=== PATIENT | female | born 1935 | race Caucasian/White ===

== ENCOUNTER 2017-07-10 09:20 | Inpatient (IN) ==
[2017-07-10] MEDS ORDERED: 0.9 % Sodium Chloride 1,000 ML IVC ONE ×2 (09:28→12:24)
[2017-07-10] MEDS ORDERED: Ondansetron 4 MG/2 ML VIAL IVP ONE ×2 (09:28→12:24)
[2017-07-10] MEDS ORDERED: *HR* FentaNYL (PF) 100 MCG/2 ML VIAL IVP ONE (09:28)
--- NOTE | 2017-07-10 09:50 | Emergency Department Note ---
Disposition Clinical Impression: NSTEMI (non-ST elevated myocardial infarction), Abdominal pain, Nausea and vomiting Disposition: Admitted As Inpatient Condition: Good Nausea/Vomiting/Diarrhea HPI - General Chief complaint: ED Nausea/Vomiting/Diarrhea Stated complaint: NVD Time Seen by Provider: 07/10/17 09:21 Source: patient, EMS Mode of arrival: EMS Limitations: no limitations Nursing Notes Reviewed: Yes Vital Signs Reviewed: Yes - History of Present Illness HPI Narrative: 81-year-old female presents to the ER with a chief complaint of abdominal pain nausea vomiting and diarrhea. Patient reports that she started having symptoms yesterday evening. She ate Indonesian for dinner and started having symptoms around 4 hours later. She reports pain around her epigastric area that feels dull. She has also had nausea with numerous episodes of vomiting. Reports she had a couple loose bowel movements. She denies any chest pain or shortness of breath. No history of cardiac disease. No history of abdominal surgeries. She denies any fevers, dysuria, hematuria. No sick contacts. No other complaints. Pt Subjective Complaint: nausea, vomiting, diarrhea, abdominal pain Onset (ago): hour(s) Associated Abdominal Pain: Yes If pain, Location of pain: epigastric Severity: mild Severity scale (1-10): 4 Quality: aching Consistency: intermittent Improves with: nothing Worsens with: nonthing Associated symptoms: Reports: nausea/vomiting. Denies: chest pain, fever/chills , shortness of breath - Related Data Home Medications Medication Instructions Recorded Confirmed Aspirin [Lo-Dose Aspirin EC] 81 mg PO DAILY 07/10/17 07/10/17 Cholecalciferol (D-3) [Vitamin D] 1,000 unit PO DAILY 07/10/17 07/10/17 Furosemide [Lasix] 40 mg PO DAILY PRN 07/10/17 07/10/17 Glimepiride [Amaryl] 1 mg PO DAILY 07/10/17 07/10/17 Gluc/Jaxson-MSM#1/C/Joshua/Osvaldo/Bor 1 tab PO DAILY 07/10/17 07/10/17 [Osteo Bi-Flex Caplet] Loratadine [Claritin] 10 mg PO DAILY 07/10/17 07/10/17 [place]-3/Dha/Epa/Fish Oil [Fish Oil 1,000 mg PO DAILY 07/10/17 07/10/17 1,000 mg Softgel] Propranolol HCl [Propranolol HCl] 40 mg PO TID 07/10/17 07/10/17 Rosuvastatin Calcium [Rosuvastatin 10 mg PO DAILY 07/10/17 07/10/17 Calcium] Saxagliptin HCl [Onglyza] 2.5 mg PO DAILY 07/10/17 07/10/17 Triamterene/Hydrochlorothiazid 1 cap PO DAILY 07/10/17 07/10/17 [Dyazide 37.5-25 Capsule] Vit A/Vit C/Vit E/Zinc/Copper 1 cap PO DAILY 07/10/17 07/10/17 [Icaps Areds Softgel] Allergies Allergy/AdvReac Type Severity Reaction Status Date / Time ETTA Inhibitors AdvReac Cough Verified 07/10/17 09:34 All systems ED: reviewed and negative except as stated. Constitutional: Denies: fever Cardiovascular: Denies: chest pain Respiratory: Denies: dyspnea Gastrointestinal: Reports: abdominal pain, nausea, vomiting, diarrhea Genitourinary: Denies: dysuria, hematuria Past Medical History - Past Medical History Attestation: Yes The following information was validated with the patient. Source: patient Medical history: Reports: diabetes, hyperlipidemia, hypertension, renal disease Psychiatric history: Reports: no psych history - Social History Smoking Status: Never smoker Smokeless Tobacco Status: No Alcohol use: Reports: none Drug use: Reports: none Physical Exam - General Limitations: no limitations General appearance: alert, in no apparent distress - Head Head exam: atraumatic, normocephalic - Eye Eye exam: Present: normal appearance - ENT ENT exam: normal exam - Neck Neck exam: Present: normal inspection, full ROM - Chest Chest inspection: Present: normal inspection, symmetric chest wall rise - Respiratory Respiratory exam: Present: normal lung sounds bilaterally - Cardiovascular Cardiovascular exam: Present: regular rate, normal rhythm, normal heart sounds - Abdominal Exam Abdominal exam: Present: soft, tenderness (Patient has mild epigastric tenderness without rigidity guarding or distention.). Absent: distention, guarding, rigidity - Extremities Exam Extremities exam: Present: normal inspection, full ROM - Expanded Upper Extremity Exam Shoulder exam: Present: normal inspection, full ROM Arm exam: Present: normal inspection, full ROM Elbow exam: Present: normal inspection, full ROM Forearm/Wrist exam: Present: normal inspection, full ROM Hand exam: Present: normal inspection, full ROM - Expanded Lower Extremity Exam Hip/Pelvis exam: Present: normal inspection, full ROM Upper leg exam: Present: normal inspection, full ROM Knee exam: Present: normal inspection, full ROM Lower leg exam: Present: normal inspection, full ROM Ankle exam: Present: normal inspection, full ROM Foot/toe exam: Present: normal inspection, full ROM - Skin Skin exam: Present: warm, dry Course Course Narrative: Patient seen and examined. Vital signs reviewed. We will get an EKG, CT of the abdomen and pelvis as well as labs including troponin and urinalysis. Patient given IV fluids, Zofran and fentanyl. - Reevaluation(s) Reevaluation #1: Discussed results of imaging and labs with the patient. Discussed recommendation for repeat 3 hour troponin and meantime we will give her some additional IV fluids, Zofran and Pepcid. Reevaluation #2: Discussed results repeat troponin with the patient. She continues to deny any chest pains is having some epigastric dullness. Repeat EKG without worsening of any findings. We will admit to the hospitalist for further evaluation. Vital Signs Temperature 98.3 F 07/10/17 09:22 Pulse Rate 97 07/10/17 09:22 Respiratory Rate 16 07/10/17 09:22 Blood Pressure 154/94 07/10/17 09:22 O2 Sat by Pulse Oximetry 94 07/10/17 09:22 Temperature 98.3 F 07/10/17 09:22 Pulse Rate 79 07/10/17 13:44 Respiratory Rate 16 07/10/17 15:05 Blood Pressure 132/69 07/10/17 15:05 O2 Sat by Pulse Oximetry 96 07/10/17 13:44 Oxygen Delivery Oxygen Delivery Room Air Nausea/Vomiting/Diarrhea - MDM Narrative Medical decision making narrative: 81-year-old female presents to the ER due to epigastric abdominal pain nausea and vomiting since yesterday evening. Well-appearing here. Initial EKG nonischemic. CT scan without evidence of acute pathology. Labs reviewed. We did repeat a 3 hour troponin which was elevated at 0.08. Patient given low- dose aspirin. She is admitted to the hospitalist service for NSTEMI. - Lab Data Lab results reviewed: Yes I reviewed the patient's lab results. Result diagrams: 07/10/17 09:46 07/10/17 09:46 Lab Results 07/10/17 07/10/17 07/10/17 Range/Units 09:26 09:46 09:46 WBC 11.8 H (4.3-11.1) K/mcL RBC 5.52 H (3.82-4.97) M/mcL Hgb 17.4 H (11.5-15.4) g/dL Hct 50.2 H (35.3-44.9) % MCV 90.9 (83.0-100.0) fL MCH 31.5 (28.0-33.3) pg MCHC 34.7 (31.6-35.5) g/dL RDW 12.7 (11.5-14.5) % Plt Count 138 L (140-400) K/mcL MPV 11.1 (9.4-12.4) fL Immature Gran % 0.4 (0-4) % Seg Neutrophils % 93.4 % Lymphocytes % 1.9 % Monocytes % 3.9 % Eosinophils % 0.3 % Basophils % 0.1 % Neutrophils # 11.0 H (1.6-8.9) K/mcL Lymphocytes # 0.2 L (0.6-4.6) K/mcL Monocytes # 0.5 (0.0-1.3) K/mcL Eosinophils # 0.0 (0.0-0.6) K/mcL Basophils # 0.0 (0.0-0.2) K/mcL Immature Plt Fraction 5.8 (1.1-6.1) % Sodium 138 (136-145) mEq/L Potassium 3.7 (3.5-5.1) mEq/L Chloride 103 (98-107) mEq/L Carbon Dioxide 23 (23-29) mEq/L BUN 34 H (8-23) mg/dL Creatinine 1.38 H (0.60-1.20) mg/dL Est GFR ( Amer) 45 L (> 60) Est GFR (Non-Af Amer) 37 L (> 60) BUN/Creatinine Ratio 25 (6-26) Glucose 335 H (70-105) mg/dL POC Glucose 307 H (58-89) Calculated Osmolality 307 H (280-300) Calcium 9.0 (8.6-10.3) mg/dL Total Bilirubin 1.0 (0.3-1.0) mg/dL AST 23 (13-39) Units/L ALT 47 (7-52) Units/L Alkaline Phosphatase 46 (34-104) Units/L Troponin I (< 0.04) ng/mL Serum Total Protein 7.1 (6.4-8.9) g/dL Albumin 4.3 (3.5-5.7) g/dL Globulin 2.8 (2.4-3.5) g/dL Albumin/Globulin Ratio 1.5 (1.1-2.2) Lipase 33 (11-82) Units/L Urine Color (Yellow) Urine Clarity (Clear) Urine pH (5.0-8.0) pH Units Ur Specific [employer] (1.010-1.025) Urine Protein (Neg-Trace) mg/dL Urine Glucose (UA) (Normal) mg/dL Urine Ketones (Negative) mg/dL Urine Blood (Negative) Urine Nitrite (Negative) Urine Bilirubin (Negative) Urine Urobilinogen (Normal) mg/dL Ur Leukocyte Esterase (Negative) Urine Microscopic RBC (0-3) per hpf Urine Microscopic WBC (0-3) per hpf Ur Squamous Epith Cells (None-Few) per lpf Urine Bacteria (None-Few) per hpf Hyaline Casts (None-Few) per lpf Ur Culture Indicated? (NO) 07/10/17 07/10/17 07/10/17 Range/Units 09:46 10:06 12:59 WBC (4.3-11.1) K/mcL RBC (3.82-4.97) M/mcL Hgb (11.5-15.4) g/dL Hct (35.3-44.9) % MCV (83.0-100.0) fL MCH (28.0-33.3) pg MCHC (31.6-35.5) g/dL RDW (11.5-14.5) % Plt Count (140-400) K/mcL MPV (9.4-12.4) fL Immature Gran % (0-4) % Seg Neutrophils % % Lymphocytes % % Monocytes % % Eosinophils % % Basophils % % Neutrophils # (1.6-8.9) K/mcL Lymphocytes # (0.6-4.6) K/mcL Monocytes # (0.0-1.3) K/mcL Eosinophils # (0.0-0.6) K/mcL Basophils # (0.0-0.2) K/mcL Immature Plt Fraction (1.1-6.1) % Sodium (136-145) mEq/L Potassium (3.5-5.1) mEq/L Chloride (98-107) mEq/L Carbon Dioxide (23-29) mEq/L BUN (8-23) mg/dL Creatinine (0.60-1.20) mg/dL Est GFR ( Amer) (> 60) Est GFR (Non-Af Amer) (> 60) BUN/Creatinine Ratio (6-26) Glucose (70-105) mg/dL POC Glucose (58-89) Calculated Osmolality (280-300) Calcium (8.6-10.3) mg/dL Total Bilirubin (0.3-1.0) mg/dL AST (13-39) Units/L ALT (7-52) Units/L Alkaline Phosphatase (34-104) Units/L Troponin I 0.03 0.08 H* (< 0.04) ng/mL Serum Total Protein (6.4-8.9) g/dL Albumin (3.5-5.7) g/dL Globulin (2.4-3.5) g/dL Albumin/Globulin Ratio (1.1-2.2) Lipase (11-82) Units/L Urine Color Yellow (Yellow) Urine Clarity Clear (Clear) Urine pH 5.5 (5.0-8.0) pH Units Ur Specific [employer] > 1.030 H (1.010-1.025) Urine Protein 100 H (Neg-Trace) mg/dL Urine Glucose (UA) >=1000 H (Normal) mg/dL Urine Ketones 15 H (Negative) mg/dL Urine Blood Negative (Negative) Urine Nitrite Negative (Negative) Urine Bilirubin Small H (Negative) Urine Urobilinogen Normal (Normal) mg/dL Ur Leukocyte Esterase Negative (Negative) Urine Microscopic RBC 3-5 H (0-3) per hpf Urine Microscopic WBC 0-3 (0-3) per hpf Ur Squamous Epith Cells Moderate H (None-Few) per lpf Urine Bacteria None Seen (None-Few) per hpf Hyaline Casts None Seen (None-Few) per lpf Ur Culture Indicated? NO (NO) - Radiology Data Radiology results reviewed: Yes I reviewed the patient's radiology results. Abdomen/Pelvis CT 07/10/17 10:20 IMPRESSION: Fluid is seen within the lumen of the colon. Correlate with any history of diarrhea. Diverticulosis, without alicia diverticulitis. Cholelithiasis. Fatty liver. Bibasilar pulmonary nodules, the largest within the lingula measuring up to approximately 1.6 cm, potentially nodular atelectasis. Short-term interval follow-up to resolution is recommended. D/ / Owen Corona MD / Owen Corona MD Interpreting Provider: Owen Corona MD - EKG Data EKG attestation: Yes I reviewed and interpreted this EKG. EKG results narrative: EKG demonstrates sinus rhythm with a rate of 84 bpm. Left axis deviation. Normal intervals. Normal R-wave progression. Nonspecific ST-T wave changes in the inferior and lateral leads. No gross ST elevations or depressions. No acute ischemic findings. No significant changes from previous EKG dated . EKG demonstrates sinus rhythm with rate of 84 bpm. Left axis deviation. Normal intervals. Normal R-wave progression. No gross ST elevations or depressions. No acute ischemic findings. No significant changes from previous EKG. S.B.A.R. - S.B.A.R. Situation: Demographics, MOA Background: Presenting Complaint, Relevant PMH, Meds, & Allergies Assessment: Course and respsone to treatment, Exam Concerns, Patient/Family Expectation, Pertinant Lab Results Recommendation: Barrier(s) to disposition, Recommendation based on pending studies, treatments, or consults S.B.A.R. Report Given to: Dr. Cummins Attestation Statement - Attestation Attestation: I examined this patient and my medical decision-making was reviewed with the Resident Physician, Dr. Armendariz. I agree with the documented findings, disposition and treatment plan as described except to the extent set forth below. Patient is a 81-year-old white female who presents to the emergency department today with complaints of epigastric discomfort associated with nausea vomiting and loose watery diarrhea since last night. Patient associates this with eating Indonesian food for dinner last night and becoming sick there soon after. Patient denies any fevers or chills, no lower abdominal pain, no blood in her stool, no back or flank pain. I agree with the patient's physical exam findings as documented. Pt had not had any vomiting or diarrhea while in the ED but does complain of ongoing epigastric discomfort and nausea. EKG shows a normal sinus rhythm without acute ischemia. She was given IV meds for nausea and Pepcid for GI discomfort. Labs were unremarkable overall in abdominal and pelvic CT scan was unremarkable for any abnormalities. Patient was tolerating by mouth following medication administration and feeling better although complained of nagging epigastric discomfort. We decided to do serial troponin at 3 hours which she was called as a critical lab and elevated. Repeat EKG was obtained showing some concern for new [address] depression in the lateral leads. Patient received aspirin and will be admitted for concerns for non-STEMI. Patient remains hemodynamically stable at this time and tolerated aspirin without difficulty.
[2017-07-10 09:53] LABS: Basophils % 0.1 %; Eosinophils % 0.3 %; Hematocrit 50.2 % (35.3-44.9); Hemoglobin 17.4 g/dL (11.5-15.4); Immature Granulocytes % 0.4 % (0-4); Immature Platelets 5.8 % (1.1-6.1); Lymphocytes # 0.2 K/mcL (0.6-4.6); Lymphocytes % 1.9 %; Mean Corpuscular HGB Conc 34.7 g/dL (31.6-35.5); Mean Corpuscular Hemoglobin 31.5 pg (28.0-33.3); Mean Corpuscular Volume 90.9 fL (83.0-100.0); Mean Platelet Volume 11.1 fL (9.4-12.4); Monocytes # 0.5 K/mcL (0.0-1.3); Monocytes % 3.9 %; Platelet Count 138 K/mcL (140-400); Red Blood Count 5.52 M/mcL (3.82-4.97); Red Cell Distribution Width 12.7 % (11.5-14.5); Segmented Neutrophils % 93.4 %
[2017-07-10 10:09] LABS: Albumin 4.3 g/dL (3.5-5.7); Albumin/Globulin Ratio 1.5 (1.1-2.2); Globulin 2.8 g/dL (2.4-3.5); Potassium 3.7 mEq/L (3.5-5.1); Total Protein 7.1 g/dL (6.4-8.9)
[2017-07-10 10:21] LABS: Bilirubin,Urine Small (Negative); Blood,Urine Negative (Negative); Clarity,Urine Clear (Clear); Color,Urine Yellow (Yellow); Glucose,Urine (UA) >=1000 mg/dL (Normal); Ketones,Urine 15 mg/dL (Negative); Leukocyte Esterase,Urine Negative (Negative); Nitrite,Urine Negative (Negative); PH,Urine 5.5 pH Units (5.0-8.0); Protein,Urine 100 mg/dL (Neg-Trace); Specific Gravity,Urine > 1.030 (1.010-1.025); Urobilinogen,Urine Normal (Normal)
[2017-07-10 10:24] LABS: Bacteria,Urine None Seen per hpf (None-Few); Hyaline Casts,Urine None Seen per lpf (None-Few); Squamous Epithelial Cell,Urine Moderate per lpf (None-Few); WBC,Urine 0-3 per hpf (0-3)
[2017-07-10] MEDS ORDERED: Famotidine 20 MG/2 ML VIAL IVP ONE (11:30)
[2017-07-10] MEDS ORDERED: Aspirin 81 MG TAB.CHEW PO ONE (13:47)
[2017-07-10] MEDS ORDERED: Acetaminophen 325 MG TABLET PO PRN (14:50)
[2017-07-10] MEDS ORDERED: Dextrose Gel 15 GM/37.5 ML TUBE PO PRN ×2 (14:50)
[2017-07-10] MEDS ORDERED: Naloxone 0.4 MG/ML INJ IVP PRN (14:50)
[2017-07-10] MEDS ORDERED: *HR* OxyCODONE Immed Rel 5 MG TABLET PO PRN (14:50)
[2017-07-10] MEDS ORDERED: *HR* Dextrose 50 % in Water (Syg) 50 ML SYRINGE IVP PRN (14:50)
[2017-07-10] MEDS ORDERED: D5% in Water 1,000 ML IVC PRN (14:50)
[2017-07-10] MEDS ORDERED: traMADol 50 MG TABLET PO PRN (14:50)
[2017-07-10] MEDS ORDERED: Nitroglycerin 0.4 MG TAB.SUBL SL PRN (14:54)
[2017-07-10] MEDS ORDERED: *HR* Enoxaparin 30 MG/0.3 ML SYRINGE SQ SCH (14:55)
--- NOTE | 2017-07-10 15:08 | Internal Med History&Physical ---
Date of Encounter: 07/10/17 Time of Encounter: 14:58 Assessment and Plan (1) Acute gastroenteritis Current visit: Yes Status: Acute Dehydration secondary to acute gastroenteritis, likely infectious Continue IV fluids, pain control, send the GI panel Continue clear liquids Hold triamterene Zofran as needed Omeprazole for GI prophylaxis and Lovenox for DVT prophylaxis. Patient will be admitted for observation. Full code. Time spent on this admission 40 minutes (2) Elevated troponin Current visit: Yes Status: Acute Elevated troponins likely secondary to demand ischemia The patient is not symptomatic Consider starting heparin drip if troponin increases considerably Keep aspirin, follow troponins, telemetry, lipid panel in the morning Echocardiogram to assess wall motion abnormalities Repeat EKG in the morning (3) Diabetes Current visit: Yes Status: Acute Insulin sliding scale Qualifiers: Diabetes mellitus type: type 2 Diabetes mellitus complication status: without complication Diabetes mellitus ocean transportation intermediary insulin use: without ocean transportation intermediary use Qualified Code(s): E11.9 - Type 2 diabetes mellitus without complications (4) Hypertension Current visit: Yes Status: Acute Continue propanolol Qualifiers: Hypertension type: essential hypertension Qualified Code(s): I10 - Essential (primary) hypertension (5) Polycythemia Current visit: Yes Status: Acute Polycythemia secondary to dehydration Continue IV fluids (6) Chronic kidney disease, stage III (moderate) Current visit: Yes Status: Acute Internal Medicine - H&P: HPI Chief complaint: Vomiting Admitted From: Emergency Dept History of present illness: Ms. Castellanos is a 81 year old female with a past medical history of chronic kidney disease stage III, diverticulosis, diabetes type 2 not insulin-dependent , hypertension, hyperlipidemia who came to the emergency room complaining of nausea vomiting and diarrhea started at 3 AM, 4 hours after eating Latvian food. The patient describes that she has been having nonstop vomiting and has thrown up about 7 times. Denies any abdominal cramps but feels very gassy, had a few episodes of diarrhea without seeing any blood. She received a dose of Zofran in the emergency room and also fentanyl. At the moment she feels much better, denies any chest pain. Appears very dehydrated and her hemoglobin is 17.4 and hematocrit is 50. Her discomfort is rated at 4/10. Troponin is 0.08, the prior value was 0.03. EKG shows sinus rhythm with flattening of T waves in the inferior and lateral leads slightly changed from the prior EKG. Denies any chest discomfort. Feels a lot better after receiving 2 L of normal saline in the emergency room. No sick contacts or recent traveling Past Med Surg Social Fam HX - Past Medical History Medical history: diabetes (Not insulin-dependent), hyperlipidemia, hypertension , renal disease (Chronic kidney disease stage III), other (Diverticulosis, cholelithiasis, gout, she is legally blind) Psychiatric history: no psych history - Past Surgical History Surgical History: knee replacement, orthopedic, other (Knee surgery laterally) - Social History Smoking Status: Never smoker Smokeless Tobacco Status: No Alcohol use: none Drug use: none - Additional Family History Additional family history: Mother with history of brain aneurysm/ arteriovenous malformation Internal Medicine - H&P: Meds 3 Allergy/AdvReac Type Severity Reaction Status Date / Time ETTA Inhibitors AdvReac Cough Verified 07/10/17 09:34 All Systems PM: A 10-system review of systems was performed and is negative for pertinent findings except as documented above in the HPI. Review of systems: Denies any chest pain, shortness of breath, no abdominal pain, no dysuria. Other systems out of the 10 reviewed were negative. Feels very weak - Constitutional Vitals: Temp Pulse Resp BP Pulse Ox 98.3 F 79 13 158/89 96 07/10/17 09:22 07/10/17 13:44 07/10/17 13:44 07/10/17 13:44 07/10/17 13:44 General appearance: Present: A&O X 3 Exam: Dry mucosa, appears dehydrated - Head Head exam: Present: atraumatic, normocephalic - Eye Eye exam: Present: PERRL, conjuntiva pink, sclera anicteric Pupils: Present: PERRL - Neck Neck exam general surgery: Present: supple, trachea midline. Absent: lymphadenopathy - Respiratory Respiratory exam: Present: CTAB. Absent: accessory muscle use, rales, rhonchi, wheezes - Cardiovascular Cardiovascular exam: Present: RRR, +S1, +S2. Absent: diastolic murmur, gallop, rubs, systolic murmur - GI/Abdominal GI/Abdominal exam: Present: normal bowel sounds, soft, no peritoneal signs. Absent: distended, tenderness - Extremities Exam Extremities exam: Present: warm, radial pulses palpable and symmetrical. Absent : calf tenderness, cyanotic, pedal edema - Neurological Exam Neurological exam: Present: CN II-XII intact, oriented X3, no focal deficits. Absent: pronater drift, facial droop, speech deficit - Skin Skin exam: Present: dry, intact Internal Med - H&P Results - Labs CBC & Chem 7: 07/10/17 09:46 07/10/17 09:46 Labs: Short CBC 07/10/17 Range/Units 09:46 WBC 11.8 H (4.3-11.1) K/mcL Hgb 17.4 H (11.5-15.4) g/dL Hct 50.2 H (35.3-44.9) % Plt Count 138 L (140-400) K/mcL Neutrophils # 11.0 H (1.6-8.9) K/mcL BMP 07/10/17 09:46 Sodium 138 Potassium 3.7 Chloride 103 Carbon Dioxide 23 BUN 34 H Creatinine 1.38 H Glucose 335 H Calcium 9.0 Cardiac Enzymes 07/10/17 07/10/17 Range/Units 09:46 12:59 Troponin I 0.03 0.08 H* (< 0.04) ng/mL Liver Function 07/10/17 Range/Units 09:46 Total Bilirubin 1.0 (0.3-1.0) mg/dL AST 23 (13-39) Units/L ALT 47 (7-52) Units/L Alkaline Phosphatase 46 (34-104) Units/L Albumin 4.3 (3.5-5.7) g/dL Urine 07/10/17 Range/Units 10:06 Urine Color Yellow (Yellow) Urine Clarity Clear (Clear) Urine pH 5.5 (5.0-8.0) pH Units Ur Specific [place] > 1.030 H (1.010-1.025) Urine Protein 100 H (Neg-Trace) mg/dL Urine Glucose (UA) >=1000 H (Normal) mg/dL - Impressions ITS Impressions Abdomen/Pelvis CT 07/10/17 10:20 IMPRESSION: Fluid is seen within the lumen of the colon. Correlate with any history of diarrhea. Diverticulosis, without alicia diverticulitis. Cholelithiasis. Fatty liver. Bibasilar pulmonary nodules, the largest within the lingula measuring up to approximately 1.6 cm, potentially nodular atelectasis. Short-term interval follow-up to resolution is recommended. D/ / Owen Corona MD / Owen Corona MD Interpreting Provider: Owen Corona MD
[2017-07-10] MEDS ORDERED: Ondansetron 4 MG/2 ML VIAL IVP PRN (15:32)
[2017-07-10] MEDS: 0.9 % Sodium Chloride 1,000 ML IVC SCH (19:35)
[2017-07-10] MEDS: Insulin LISPRO 300 UNITS/3 ML VIAL SQ SCH (19:41)
[2017-07-10] MEDS ORDERED: *HR* Heparin 5,000 UNIT/ML VIAL IVP ONE (19:51)
[2017-07-10] MEDS ORDERED: *HR* Heparin 5,000 UNIT/ML VIAL IVP PRN ×2 (19:51)
--- NOTE | 2017-07-10 19:56 | Event Note ---
Date of Encounter: 07/10/17 Time of Encounter: 19:30 Pt's troponin 0.03-0.08-0.35. Pt denies chest pain but there is some EKG ST-T changes, no ST elevation. Will start heparin drip and consult cardiology.
[2017-07-10] MEDS: Heparin 25,000 UNIT/500 ML D5W 25,000 UNIT/500 ML BAG IVC SCH (20:39)
[2017-07-10 21:08] LABS: Hematocrit 43.1 % (35.3-44.9); Mean Corpuscular HGB Conc 33.6 g/dL (31.6-35.5); Mean Corpuscular Hemoglobin 31.3 pg (28.0-33.3); Mean Corpuscular Volume 93.1 fL (83.0-100.0); Mean Platelet Volume 11.9 fL (9.4-12.4); Red Blood Count 4.63 M/mcL (3.82-4.97); Red Cell Distribution Width 13.1 % (11.5-14.5)
[2017-07-10 21:11] LABS: Hemoglobin 14.5 g/dL (11.5-15.4)
[2017-07-10 21:12] LABS: INR 1.2; Prothrombin Time 13.2 Seconds (9.4-12.1)
[2017-07-11 03:16] LABS: Basophils % 0.3 %; Eosinophils % 0.4 %; Hematocrit 41.3 % (35.3-44.9); Hemoglobin 14.4 g/dL (11.5-15.4); Immature Granulocytes % 0.4 % (0-4); Lymphocytes # 0.8 K/mcL (0.6-4.6); Lymphocytes % 10.9 %; Mean Corpuscular HGB Conc 34.9 g/dL (31.6-35.5); Mean Corpuscular Volume 91.8 fL (83.0-100.0); Mean Platelet Volume 11.4 fL (9.4-12.4); Monocytes # 0.7 K/mcL (0.0-1.3); Monocytes % 9.4 %; Neutrophils # 5.6 K/mcL (1.6-8.9); Platelet Count 122 K/mcL (140-400); Red Cell Distribution Width 13.2 % (11.5-14.5); Segmented Neutrophils % 78.6 %
[2017-07-11 03:33] LABS: Calcium 7.4 mg/dL (8.6-10.3); Chol/HDL Ratio 3.4 (0-4.9); Magnesium 1.4 mg/dL (1.6-2.6); Potassium 3.5 mEq/L (3.5-5.1)
[2017-07-11] MEDS: Insulin LISPRO 300 UNITS/3 ML VIAL SQ SCH ×3 (08:30→16:32)
[2017-07-11] MEDS: 0.9 % Sodium Chloride 1,000 ML IVC SCH (08:30)
[2017-07-11] MEDS ORDERED: Aspirin Enteric Coated 81 MG Tablet PO SCH (09:00)
--- NOTE | 2017-07-11 11:20 | Cardiology Consult Note ---
Date of Encounter: 07/11/17 Time of Encounter: 09:00 Assessment and Plan (1) NSTEMI (non-ST elevated myocardial infarction) Current Visit: Yes Status: Acute Per cardiology: -Presented with nausea and vomiting. -Troponins 0.03, 0.08, 0.35, 0.71, 1.04, 1.21. -Denies chest pain. -No acute ECG changes, -ON asa, statin, beta zheng, and heparin drip. -TTE pending. -Creatinine 1.38, at baseline. -Platelets 122, platelets have been 120-160s previously. -Discussed LHC with patient. Risks versus benefits of LHC explained to patient. Patient states understanding. At this time, patient wishes to review TTE prior to agreeing to LHC. -Further recommendations pending TTE. (2) Acute gastroenteritis Current Visit: Yes Status: Acute Per cardiology: -Admitted with nausea and vomiting after eating cymro food. -Management per primary service. (3) Chronic kidney disease, stage III (moderate) Current Visit: Yes Status: Acute Per cardiology: -KNown CKD. -Creatinine 1.38. -Baseline 1.3-1.5 -Management per primary service. Discussion w patient/family: The assessment and plan as outlined above was discussed with the patient who expressed understanding and agreement. All questions were answered. Thank you for involving us in the care of your patient. Please call with any questions. Discussed and reviewed with . History of Present Illness Consult date: 07/10/17 Requesting physician: Sally Rodríguez Consult reason: elevated troponin Chief complaint: nausea, vomiting History of present illness: Ms. Castellanos is a 81 year old female with a relevant past medical history of CKD, HTN, hyperlipidemia, DM. Patient presented to [facility] with complaints of intractable nausea and vomiting. Patient states she ate cymro food the evening before her vomiting started. Patient states she woke up with "indigestion," and then started with nausea and vomiting. Patient denies fevers , chills. Denies chest pain. Patient deneis icnreased shortness of breath or increased fatigue. Past Med Surg Social Fam HX - Past Medical History Attestation: Yes The following information was validated with the patient. Source: patient, old records reviewed Medical history: arthritis, diabetes, hyperlipidemia, hypertension, renal disease, other Psychiatric history: no psych history - Past Surgical History Surgical History: knee replacement, orthopedic, other - Social History Smoking Status: Never smoker Smokeless Tobacco Status: No Alcohol use: none Drug use: none Medications and Allergies Aspirin [Lo-Dose Aspirin EC] 81 mg PO DAILY 07/10/17 [History] Cholecalciferol (D-3) [Vitamin D] 1,000 unit PO DAILY 07/10/17 [History] Furosemide [Lasix] 40 mg PO DAILY PRN 07/10/17 [History] Glimepiride [Amaryl] 1 mg PO DAILY 07/10/17 [History] Gluc/Jaxson-MSM#1/C/Joshua/Osvaldo/Bor [Osteo Bi-Flex Caplet] 1 tab PO DAILY 07/10/17 [ History] Loratadine [Claritin] 10 mg PO DAILY 07/10/17 [History] Parnell-3/Dha/Epa/Fish Oil [Fish Oil 1,000 mg Softgel] 1,000 mg PO DAILY 07/10/17 [History] Propranolol HCl [Propranolol HCl] 40 mg PO TID 07/10/17 [History] Rosuvastatin Calcium [Rosuvastatin Calcium] 10 mg PO DAILY 07/10/17 [History] Saxagliptin HCl [Onglyza] 2.5 mg PO DAILY 07/10/17 [History] Triamterene/Hydrochlorothiazid [Dyazide 37.5-25 Capsule] 1 cap PO DAILY [History] Vit A/Vit C/Vit E/Zinc/Copper [Icaps Areds Softgel] 1 cap PO DAILY 07/10/17 [ History] 3 Allergy/AdvReac Type Severity Reaction Status Date / Time ETTA Inhibitors AdvReac Cough Verified 07/10/17 09:34 All Systems Review: A 10-system review of systems was performed and is negative for pertinent findings except as documented above in the HPI. - Cardiovascular Cardiovascular: as per HPI - Gastrointestinal Gastrointestinal: nausea, other (Vomiting, indigestion) Physical Examination Vital Signs Temperature 98.3 F 07/10/17 09:22 Pulse Rate 97 07/10/17 09:22 Respiratory Rate 16 07/10/17 09:22 Blood Pressure 154/94 07/10/17 09:22 O2 Sat by Pulse Oximetry 94 07/10/17 09:22 Temperature 98.4 F 07/11/17 03:17 Pulse Rate 58 07/11/17 03:17 Respiratory Rate 16 07/11/17 03:17 Blood Pressure 99/63 07/11/17 03:17 O2 Sat by Pulse Oximetry 96 07/11/17 03:17 Oxygen Delivery Oxygen Delivery Room Air General: Conversant, No Apparent Distress HEENT: Atraumatic, Normocephaly, Mucus Membranes Moist Neck: No JVD, Normal carotid pulses Cardiac: Reg Rate and Rhythm, Normal S1 and S2, No Murmur Lungs: Normal Breath Sounds, No Wheeze, Rales, Rhonchi Neuro: Alert and responsive, No focal deficits noted Abdomen: Soft, Non-Tender Skin: No rashes noted on visualized skin Musculoskeletal: No Chest Wall Tenderness Extremities: No Clubbing, No Cyanosis, No Edema, Normal Pulses Results 07/11/17 02:58 07/11/17 02:58 Lab Results Impressions Abdomen/Pelvis CT 07/10/17 10:20 IMPRESSION: Fluid is seen within the lumen of the colon. Correlate with any history of diarrhea. Diverticulosis, without alicia diverticulitis. Cholelithiasis. Fatty liver. Bibasilar pulmonary nodules, the largest within the lingula measuring up to approximately 1.6 cm, potentially nodular atelectasis. Short-term interval follow-up to resolution is recommended. D/ / Owen Corona MD / Owen Corona MD Interpreting Provider: Owen Corona MD Active Medications Acetaminophen (Tylenol) 650 mg PO Q6HR PRN PRN Reason: Mild Pain/Fever Stop: 01/09/18 14:51 Aspirin (Aspirin Ec) 81 mg PO DAILY DELBERT Stop: 01/10/18 09:01 Last Admin: 07/11/17 08:29 Dose: 81 mg Atorvastatin Calcium (Lipitor) 40 mg PO HS DELBERT Stop: 01/09/18 21:01 Last Admin: 07/10/17 21:22 Dose: 40 mg Calcium Carbonate (Tums) 1,000 mg PO QID PRN; Protocol PRN Reason: Heartburn Stop: 01/09/18 21:01 Last Admin: 07/10/17 19:45 Dose: 1,000 mg Dextrose/Water (Dextrose 50% (Syg)) 25 ml IVP AD PRN PRN Reason: Hypoglycemia Stop: 01/09/18 14:51 Glucagon (Glucagen) 1 mg IM ONCE PRN PRN Reason: Hypoglycemia Stop: 01/09/18 14:51 Glucose (Gluctose) 15 gm PO ONCE PRN PRN Reason: Hypoglycemia Stop: 01/09/18 14:51 Glucose (Gluctose) 30 gm PO ONCE PRN PRN Reason: Hypoglycemia Stop: 01/09/18 14:51 Heparin Sodium (Porcine) (Heparin) 4,000 unit IVP Q6H PRN PRN Reason: SEE COMMENTS Stop: 01/09/18 19:52 Heparin Sodium (Porcine) (Heparin) 2,000 unit IVP Q6H PRN PRN Reason: SEE COMMENTS Stop: 01/09/18 19:52 Dextrose (Dextrose 5%) 1,000 mls @ 100 mls/hr IVC .Q10H PRN PRN Reason: HYPOGLYCEMIA Stop: 01/09/18 14:51 Heparin Sodium/Dextrose (Heparin 25,000 Unit/500 Ml D5w) 25,000 unit in 500 mls @ 20.684 mls/hr IVC .Q24H DELBERT; 12 UNIT/KG/HR PRN Reason: Protocol Stop: 01/09/18 20:01 Last Titration: 07/11/17 09:31 Dose: 10.26 unit/kg/hr, 17.7 mls/hr Insulin Human Lispro (Humalog) 0 units SQ TIDAC DELBERT PRN Reason: Protocol Stop: 01/09/18 16:31 Last Admin: 07/11/17 08:30 Dose: Not Given Naloxone HCl (Narcan) 0.4 mg IVP Q2MIN PRN PRN Reason: SEE COMMENTS Stop: 01/09/18 14:51 Nitroglycerin (Nitroglycerin) 0.4 mg SL Q5MIN PRN PRN Reason: Chest Pain Stop: 01/09/18 14:55 Omeprazole (Prilosec) 40 mg PO DAILY@0630 DELBERT PRN Reason: Protocol Stop: 01/10/18 06:31 Last Admin: 07/11/17 06:52 Dose: 40 mg Ondansetron HCl (Zofran) 4 mg IVP Q6HR PRN; Protocol PRN Reason: Nausea And Vomiting Stop: 01/09/18 15:33 Oxycodone HCl (Roxicodone) 10 mg PO Q6HR PRN PRN Reason: Severe Pain Stop: 01/09/18 14:51 Propranolol HCl (Inderal) 40 mg PO TID DELBERT Stop: 01/09/18 15:01 Last Admin: 07/11/17 08:29 Dose: 40 mg Tramadol HCl (Ultram) 50 mg PO Q6HR PRN PRN Reason: Moderate Pain Stop: 01/09/18 14:51 Laboratory Tests 04/30/14 09/01/16 11/17/16 11:12 10:41 08:39 Hgb Plt Count 127 L 138 L Creatinine 1.45 H Troponin I 06/13/17 06/13/17 07/10/17 10:49 10:50 09:46 Hgb Plt Count 151 138 L Creatinine 1.56 H Troponin I 07/10/17 07/10/17 07/10/17 09:46 12:59 18:55 Hgb Plt Count Creatinine Troponin I 0.03 0.08 H* 0.35 H* 07/10/17 07/11/17 07/11/17 20:48 00:50 02:58 Hgb 14.4 Plt Count 131 L 122 L Creatinine Troponin I 0.71 H* 07/11/17 07/11/17 07/11/17 02:58 06:26 10:41 Hgb Plt Count Creatinine 1.38 H Troponin I 1.04 H* 1.21 H* - Imaging and Cardiology Chest Xray: report reviewed Echo: pending - EKG Interpretation EKG results cardiology: personally reviewed (ECG with SR, HR 74.), other ( Telemetry reviewed with average HR previous 12 hours noted to be 58, sinus bradycardia. PVCs noted.) Consult Discharge Plan - Plan Referrals: Cody Berg MD [Primary Care Provider] -
--- NOTE | 2017-07-11 11:44 | Internal Med Progress Note ---
Date of Encounter: 07/11/17 Time of Encounter: 11:41 - Assessment and plan (1) Elevated troponin Current Visit: Yes Status: Acute Assessment and plan: Possible non-STEMI Continue heparin drip, aspirin, statin, nitroglycerin as needed Continue propanolol Urology was consulted, echocardiogram pending Cardiology to consider cardiac catheterization The patient has developed a viral infection symptoms Check respiratory infection panel Recommendations appreciated (2) Acute gastroenteritis Current Visit: Yes Status: Acute Assessment and plan: dehydration secondary to acute gastroenteritis, likely infectious Continue IV fluids, pain control, send GI panel Continue clear liquids Hold triamterene Zofran as needed Omeprazole for GI prophylaxis (3) Diabetes Current Visit: Yes Status: Acute Assessment and plan: Insulin sliding scale Qualifiers: Diabetes mellitus type: type 2 Diabetes mellitus complication status: without complication Diabetes mellitus long term care social worker insulin use: without fci use Qualified Code(s): E11.9 - Type 2 diabetes mellitus without complications (4) Hypertension Current Visit: Yes Status: Acute Assessment and plan: Propanolol Qualifiers: Hypertension type: essential hypertension Qualified Code(s): I10 - Essential (primary) hypertension (5) Polycythemia Current Visit: Yes Status: Acute Assessment and plan: Secondary to dehydration Resolved (6) Chronic kidney disease, stage III (moderate) Current Visit: Yes Status: Acute Assessment and plan: Continue IV fluids (7) NSTEMI (non-ST elevated myocardial infarction) Current Visit: Yes Status: Acute - Subjective Interval history: Denies any chest pain, shortness of breath, abdominal pain, no diarrhea since admission. The patient has been coughing and having chills - Constitutional Vitals: Temp Pulse Resp BP Pulse Ox 98.4 F 58 16 99/63 96 07/11/17 03:17 07/11/17 03:17 07/11/17 03:17 07/11/17 03:17 07/11/17 03:17 General appearance: Present: A&O X 3 - Head Head exam: Present: atraumatic, normocephalic - Eye Eye exam: Present: PERRL, conjuntiva pink, sclera anicteric Pupils: Present: PERRL - Neck Neck exam general surgery: Present: supple, trachea midline. Absent: lymphadenopathy - Respiratory Respiratory exam: Present: CTAB. Absent: accessory muscle use, rales, rhonchi, wheezes - Cardiovascular Cardiovascular exam: Present: RRR, +S1, +S2. Absent: diastolic murmur, gallop, rubs, systolic murmur - GI/Abdominal GI/Abdominal exam: Present: normal bowel sounds, soft, no peritoneal signs. Absent: distended, tenderness - Extremities Exam Extremities exam: Present: warm, radial pulses palpable and symmetrical. Absent : calf tenderness, cyanotic, pedal edema - Neurological Exam Neurological exam: Present: CN II-XII intact, oriented X3, no focal deficits. Absent: pronater drift, facial droop, speech deficit - Skin Skin exam: Present: dry, intact Internal Medicine: Result - Labs CBC & Chem 7: 07/11/17 02:58 07/11/17 02:58 Labs: Short CBC 07/11/17 Range/Units 02:58 WBC 7.2 (4.3-11.1) K/mcL Hgb 14.4 (11.5-15.4) g/dL Hct 41.3 (35.3-44.9) % Plt Count 122 L (140-400) K/mcL Neutrophils # 5.6 (1.6-8.9) K/mcL BMP 07/11/17 02:58 Sodium 143 Potassium 3.5 Chloride 107 Carbon Dioxide 30 H BUN 27 H Creatinine 1.38 H Glucose 183 H Calcium 7.4 L Cardiac Enzymes 07/11/17 07/11/17 Range/Units 06:26 10:41 Troponin I 1.04 H* 1.21 H* (< 0.04) ng/mL - ABG Interpretation ABG results: PT/INR, D-dimer PT 13.2 Seconds (9.4-12.1) H 07/10/17 20:48 - Impressions Impressions Echocardiogram 07/11/17 14:49 Impressions: LVEF 60-65%. Mild left ventricular diastolic dysfunction. Normal right ventricular structure and function. Mild tricuspid regurgitation. No pulmonary hypertension. Left Ventricular Wall Motion: Rest Echo Findings All wall segments showed normal motion. Findings: Study Quality * Technically adequate exam. ECG Findings * Normal sinus rhythm. Left Ventricle * LVEF 60-65%. * Mild left ventricular diastolic dysfunction. * Normal LV size and wall thickness. Right Ventricle * Normal right ventricular structure and function. Left Atrium * Mildly dilated left atrium. Right Atrium * Right atrium is not well visualized. Aortic Valve * No aortic regurgitation. * Aortic valve not well visualized. * No aortic stenosis. Mitral Valve * Normal mitral valve structure. * No mitral stenosis. * Trace mitral regurgitation. Tricuspid Valve * Tricuspid valve not well visualized. * Mild tricuspid regurgitation. * Estimated RA pressure is 3 mmHg. * Estimated RVSP is 28 mmHg. * No pulmonary hypertension. Pulmonic Valve * Pulmonic valve is not well visualized. * No pulmonic stenosis. * No pulmonic regurgitation. Pulmonary Artery * Pulmonary artery not well visualized. Aorta * Normally sized aortic root. * Ascending aorta not well visualized. Pericardium * There is no pericardial effusion present. Interatrial Septum * No evidence of PFO by color Doppler. IVC * Normal IVC dimensions and inspiratory collapse. Consult Discharge Plan - Plan Referrals: Cody Berg MD [Primary Care Provider] -
[2017-07-11 14:58] LABS: Adenovirus Not Detected (Not Detect); Bordetella Pertussis Not Detected (Not Detect); Chlamydophila pneumoniae Not Detected (Not Detect); Coronavirus 229E Not Detected (Not Detect); Coronavirus HKU1 Not Detected (Not Detect); Coronavirus NL63 Not Detected (Not Detect); Coronavirus OC43 Not Detected (Not Detect); Human Metapneumovirus Not Detected (Not Detect); Human Rhinovirus/Enterovirus Not Detected (Not Detect); Influenza A Subtype 2009 H1 Not Detected (Not Detect); Influenza A Untypeable Not Detected (Not Detect); Influenza B Not Detected (Not Detect); Mycoplasma pneumoniae Not Detected (Not Detect); Parainfluenza Virus 1 Not Detected (Not Detect); Parainfluenza Virus 2 Not Detected (Not Detect); Parainfluenza Virus 3 Not Detected (Not Detect); Parainfluenza Virus 4 Not Detected (Not Detect); Respiratory Syncytial Virus Not Detected (Not Detect)
[2017-07-11] MEDS ORDERED: 0.9 % Sodium Chloride 1,000 ML ONE ×3 (15:33→20:52)
[2017-07-11] MEDS ORDERED: *HR* Heparin 10,000 UNIT/10 ML VIAL ONE ×2 (15:38→20:53)
[2017-07-11] MEDS ORDERED: Nitroglycerin 1,000 MCG/10 ML VIAL IV ONE ×2 (15:38→20:57)
[2017-07-11] MEDS ORDERED: Heparin 1,000 UNITS/500 mL 500 ML ONE ×4 (15:38→20:52)
[2017-07-11] MEDS ORDERED: *HR* FentaNYL (PF) 100 MCG/2 ML VIAL ONE ×3 (15:40→20:52)
[2017-07-11] MEDS ORDERED: *HR* Midazolam HCl 2 MG/2 ML VIAL ONE ×3 (15:40→20:52)
[2017-07-11] MEDS ORDERED: *HR* Atropine Sulfate 1 MG/10 ML SYRINGE ONE (15:48)
[2017-07-11] MEDS ORDERED: Tirofiban 12.5 MG/250ML 12.5 MG/250 ML BAG ONE (15:48)
[2017-07-11] MEDS ORDERED: ISOVUE-370 200 ML INFUS..BTL IV ONE ×2 (15:57→20:53)
[2017-07-11] MEDS ORDERED: Nitroglycerin Spray 4.9 GM BOTTLE ONE (16:30)
--- NOTE | 2017-07-11 17:16 | Electrocardiograph Report ---
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
--- NOTE | 2017-07-11 17:23 | Electrocardiograph Report ---
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
[2017-07-11] MEDS ORDERED: WATER IVC ONE (17:45)
[2017-07-11] MEDS ORDERED: NITROPRUSSIDE IVC ONE (17:45)
[2017-07-11] MEDS ORDERED: D5 IVC ONE (17:45)
[2017-07-11] MEDS ORDERED: *HR* Morphine 2 MG/ML SYRINGE ONE ×3 (17:56→20:13)
[2017-07-11] MEDS ORDERED: Nitroglycerin 25 MG/250 ML INFUS..BTL IVC ONE (19:22)
--- NOTE | 2017-07-11 19:27 | Invasive Diagnostic Lab Proc ---
Name: Savannah Castellanos Date of Study: 07/11/2017 Date: 1935 Ht: 61.0in Medical Record#: [id number] Age: 81 Wt: 189.82lb Gender: Female BSA: 1.85 Order #: [id number] BMI: 35.84 Physicians Procedure Physician: Terrence Esquivel MD Referring MD: Referring MD: Staff Name Position Time In Sites, Venessa RT (R) Monitor 03:35 PM Jimmie Villegas RT (R) Scrub 03:36 PM Vickie Etienne RN Lockstitch Shoulder Joiner 03:36 PM Indications Indication Non-Stemi Procedures Performed Procedure L HRT ARTERY/VENTRICLE ANGIO PRQ CARD PADMAJA STENT W/ANGIO 1 VSL IABP INSERTION, PERCUTANEOUS Pre-Procedure Checklist Informed consent is complete signed and on chart. H&P is on chart. ID band is on and ID verified with patient. Patient NPO for procedure The procedure was described for the patient and questions were answered. Blood Pressure: 100/63 ECG is on chart. Rhythm: NSR Plan of Care Patient will tolerate the procedure without complications. Adequate level of comfort will be maintained. Hemodynamics will remain stable Patient will recover from procedure without complications. Respiratory function will be maintained. Cardiac rhythm will remain stable. Patient temperature will be maintained. Patient and/or family have verbalized understanding of the procedure. Patient Education Chief Complaint/Reason for Test: Cardiac Cath Developmental Category: Geriatric (65+ years) Developmentally Appropriate for Age: Yes Learning Barriers: None Education Needs: Plan of Care Education Method: Verbal Information Taught: Cardiac Cath Educational Evaluation: Able to repeat information Intravenous Access Time IV Size Location DC'd Fluid/Drip Rate Units RN 03:26 PM 20g 1 /" Patent On Arrival Rt Antecubital 0.9NaCl 25 ml/hr Martita Luke RN Allergies Atorvastatin Ibuprofen Acetaminophen IRON Vital Signs Time BP (mmHg) HR (bpm) O2 Sat. RR (bpm) LOC 03:28 PM 99 / 63 58 96 % 16 5 = Fully awake and oriented or at pre-proc level 03:36 PM / % 5 = Fully awake and oriented or at pre-proc level 04:29 PM 189 / 27 58 77 % 24 04:32 PM 143 / 82 63 98 % 18 04:34 PM 148 / 80 54 98 % 18 04:38 PM 134 / 83 56 96 % 14 04:43 PM 136 / 74 53 94 % 24 04:48 PM 88 / 62 61 95 % 6 04:49 PM 127 / 75 51 97 % 18 04:53 PM 137 / 79 52 94 % 19 04:58 PM 147 / 84 51 96 % 23 05:03 PM 142 / 62 51 97 % 18 05:35 PM 135 / 77 48 95 % 11 05:38 PM 145 / 80 49 97 % 12 05:43 PM 105 / 64 60 96 % 15 05:49 PM 120 / 83 49 98 % 19 05:54 PM 140 / 89 49 96 % 23 05:58 PM 119 / 84 50 98 % 13 06:03 PM 131 / 72 60 91 % 15 06:08 PM 141 / 80 56 96 % 16 06:13 PM 128 / 84 55 94 % 9 06:18 PM 142 / 92 60 92 % 18 06:23 PM 95 / 71 62 95 % 22 03:44 PM 170 / 85 56 98 % 17 03:48 PM 135 / 74 55 98 % 17 03:53 PM 143 / 77 55 98 % 14 03:59 PM 138 / 76 56 99 % 22 04:03 PM 147 / 82 59 100 % 12 04:08 PM 139 / 73 59 100 % 17 04:13 PM 150 / 78 58 100 % 21 04:18 PM 160 / 87 59 100 % 13 04:24 PM 138 / 99 59 99 % 29 05:08 PM 141 / 63 51 98 % 13 05:11 PM 136 / 94 50 96 % 22 05:13 PM 103 / 45 49 100 % 20 05:14 PM 85 / 55 50 100 % 21 05:15 PM 126 / 67 50 98 % 24 05:18 PM 130 / 72 51 95 % 16 05:23 PM 132 / 102 50 95 % 10 05:29 PM 94 / 48 59 92 % 12 05:32 PM 131 / 78 48 94 % 15 05:33 PM 72 / 33 49 94 % 12 06:25 PM 89 / 60 58 95 % 21 06:27 PM 123 / 99 61 96 % 10 06:29 PM 147 / 111 55 95 % 35 06:33 PM 76 / 50 62 85 % 26 06:38 PM 63 / 32 60 % 14 06:43 PM 82 / 71 % Procedural Medications Time Medication Dose Units Method Given By 03:36 PM Oxygen 2 L/min nasal cannula Vickie Etienne RN 03:44 PM Versed 1 mg Intravenous Vickie Etienne RN 03:45 PM Fentanyl 50 mcg Intravenous Vickie Etienne RN 03:50 PM Lidocaine 2% 10 ml Subcutaneous Terrence Esquivel MD 04:01 PM Heparin 4000 units Intravenous Vickie Etienne RN 04:01 PM Aggrastat Bolus: 42 ml Intravenous Vickie Etienne RN 04:01 PM Aggrastat 12.5mg/250ml 7.5 ml Intravenous Vickie Etienne RN 04:29 PM Fentanyl 50 mcg Intravenous Vickie Etienne RN 04:30 PM Nitroglycerin 0.4 mcg Orally Vickie Etienne RN 04:31 PM Nitroglycerin 100 mcg Intracoronary MoussKashif lewis MD 04:54 PM Heparin 1000 units Intravenous Vickie Etienne RN 05:09 PM Versed 0.5 mg Intravenous Vickie Etienne RN 05:09 PM Fentanyl 25 mcg Intravenous Vickie Etienne RN 05:23 PM Nitroglycerin 100 mcg Intracoronary MoussKashif lewis MD 05:24 PM Nitroglycerin 200 mcg Intracoronary MoussKashif lewis MD 05:27 PM Nipride 50 mcg Intracoronary MoussaKashif MD 05:27 PM Nipride 50 mcg Intracoronary MoussaKashif MD 05:42 PM Nipride 50 mcg Intracoronary MoussaKashif MD 05:42 PM 0.9NaCl 200 ml/hr Intravenous Vickie Etienne RN 05:50 PM Nipride 100 mcg Intracoronary MoussKashif lewis MD 05:56 PM Morphine 2 mg Intravenous Vickie Etienne RN 05:59 PM Versed 1 mg Intravenous Vickie Etienne RN 06:05 PM Reopro Bolus: 10.8 ml Intracoronary MoussKashif lewis MD 06:07 PM Versed 1 mg Intravenous Vickie Etienne RN 06:30 PM Morphine 1 mg Intravenous Vickie Etienne RN ASA Classification: CLASS II- Mild systemic disease (i.e. well-controlled diabetes, hypertension, asthma, cigarette smoking) Hany Score Preprocedure Postprocedure Activity Activity Circulation Circulation Consciousness Consciousness O2 Saturation O2 Saturation Respiratory Respiratory Total Score Total Score Contrast Agent: Isovue Diagnostic Contrast: 297 ml Total Contrast: 297 ml Fluoro Dose: 6564 mGy Activated Clotting Time Time Seconds to Clot 04:11 PM 160 05:10 PM 322 06:09 PM 400 Procedure Log Time Note Enter By 03:19 PM CathStat 03:35 PM Pt arrived to lab animal technologist 2 at 15:35 scoates 03:35 PM Venessa Wilson RT (R) Position: Monitor Time in: 15:35 scoates 03:36 PM Jimmie Villegas RT (R) Position: Scrub Time in: 15:36 scoates 03:36 PM Vickie Etienne RN Position: Lockstitch Shoulder Joiner Time in: 15:36 scoates 03:36 PM Patient charges- Angio tray pack, Navilyst 3mm J, Pulse Oximetry and ACIST tubing and transducer scoates 03:36 PM Case Delayed No scoates 03:36 PM Physician arrived 15:36 scoates 03:36 PM Meet and greet completed scoates 03:36 PM Sign in performed according to hospital policy. scoates 03:36 PM Procedure start 15:36 scoates 03:36 PM Time: 15:36 Oxygen on at 2 L/min per nasal cannula by Vickie Etienne RN scoates 03:36 PM Time: 15:36 Patient comfortable and pain free: Yes scoates 03:36 PM Time: 15:36LOC: 5 = Fully awake and oriented or at pre-proc level scoates 03:36 PM Clinical Presentation: Non-STEMI scoates 03:42 PM Recorded ECG: HR=57 Condition=Condition 1 03:42 PM Vitals capture started with the following parameters, Patient=Adult, Interval=5 min, Initial Qshssctb=521 mmHg, Deflation Rate=5 mmHg, Cuff placed on Right Arm 03:43 PM Recorded ECG: HR=56 Condition=Condition 1 03:44 PM HR=56 bpm, PPMT=785/85 mmhg, SpO2=98.0 %, Resp=17 B/min 03:45 PM Time: 15:44 Versed 1 mg Intravenous Given by Vickie Etienne RN tsites 03:45 PM Time: 15:45 Fentanyl 50 mcg Intravenous Given by Vickie Etienne RN tsites 03:47 PM Pressure channel 1 zeroed. 03:48 PM HR=55 bpm, NOVV=553/74 mmhg, SpO2=98.0 %, Resp=17 B/min 03:50 PM Time out performed according to hospital policy tsites 03:50 PM Time: 15:50 10 ml Lidocaine 2% to right groin Subcutaneous Given by Terrence Esquivel MD tsites 03:50 PM Micro-Introducer Kit utilized for sheath placement tsites 03:50 PM 3cc of contrast injected into the rt femoral artery tsites 03:52 PM Access obtained by percutaneous puncture. 6Fr 10cm Terumo [place] sheath placed in right Femoral artery. [id number] tsites 03:53 PM HR=55 bpm, KRUF=657/77 mmhg, SpO2=98.0 %, Resp=14 B/min 03:54 PM 5Fr FL 4 catheter inserted over the wire DNC tsites 03:54 PM 0.035 145cm Navilyst 3mmJ wire [id number] tsites 03:55 PM LCA angiography performed in multiple views. tsites 03:55 PM Recorded Pressure: Ao, HR=56, Condition=Condition 1 (Aorta) Ao 115/67/87 03:56 PM wire reinserted catheter removed tsites 03:57 PM 5Fr FR 4 catheter inserted over the wire DNC tsites 03:57 PM ACT drawn tsites 03:59 PM HR=56 bpm, JNKE=167/76 mmhg, SpO2=99.0 %, Resp=22 B/min 03:59 PM RCA angiography performed in multiple views. tsites 03:59 PM Recorded Pressure: LV, HR=62, Condition=Condition 1 (Left Ventricle) LV 134/13/18 04:00 PM Recorded Pressure: LV, Ao, HR=60, Condition=Condition 1 (Left Ventricle) LV 135/14/18, (Aorta) Ao 142/76/102 04:00 PM wire reinserted catheter removed tsites 04:00 PM 5Fr Pigtail catheter inserted over the wire DNC tsites 04:00 PM Catheter selectively placed in left ventricle tsites 04:00 PM edp measured tsites 04:00 PM PCI Status Urgent tsites 04:00 PM PCI Indication: PCI for high risk Non-STEMI or unstable angina tsites 04:01 PM PCI lesion in Mid LAD. tsites 04:01 PM 6Fr XB LAD 3.5 Cordis guide catheter was used to cannulate the PCI vessel successfully. reused? No tsites 04:01 PM Inflation device was opened. tsites 04:01 PM At 16:01 the ACT was 160 seconds. tsites 04:01 PM Time: 16:01 Heparin 4000 units Intravenous Given by Vickie Etienne RN tsites 04:01 PM Time: 16:01 Aggrastat Bolus: 42 ml Intravenous Given by Vickie Etienne RN Love pump tsites 04:02 PM Time: 16:01 Aggrastat 12.5mg/250ml 7.5 ml Intravenous Given by Vickie Etienne RN Love pump tsites 04:02 PM .014 [place]ielder 180cm guide wire across target lesion- successful. reused? No tsites 04:02 PM Coronary Dominance: right tsites 04:03 PM Lesion found in Mid LAD. Pre Stenosis: 99 Pre NASIM Flow: 2: Partial Flow/Perfusion (> 1 but < 3) tsites 04:03 PM HR=59 bpm, ZPWP=691/82 mmhg, OwB3=108.0 %, Resp=12 B/min 04:05 PM Mid/Distal Left Anterior Descending Coronary Artery and diagonal branches with 99% stenosis. If graft is supplying this area, 0 % stenosis tsites 04:08 PM HR=59 bpm, QBRJ=065/73 mmhg, ObX5=499.0 %, Resp=17 B/min, Comment=SB 04:10 PM Recorded Pressure: Ao, HR=61, Condition=Condition 1 (Aorta) Ao 158/72/111 04:10 PM reshaping wire tsites 04:12 PM .014 BMW [place] 190cm guide wire across target lesion- successful. reused? No tsites 04:13 PM HR=58 bpm, ZZXA=484/78 mmhg, EqD0=266.0 %, Resp=21 B/min 04:18 PM HR=59 bpm, NBQZ=393/87 mmhg, AkC6=903.0 %, Resp=13 B/min, Comment=SB 04:24 PM HR=59 bpm, RRAD=387/99 mmhg, SpO2=99.0 %, Resp=29 B/min, Comment=SB 04:24 PM 2.0 mm x 20 mm Emerge Monorail balloon across target lesion- successful. reused? No tsites 04:26 PM Balloon catheter removed intact. tsites 04:26 PM Guide wire removed intact. tsites 04:29 PM HR=58 bpm, FXRI=614/27 mmhg, SpO2=77.0 %, Resp=24 B/min, Comment=SB 04:29 PM Time: 16:29 Fentanyl 50 mcg Intravenous Given by Vickie Etienne RN tsites 04:30 PM NIBP STAT measurement started. 04:31 PM Time: 16:30 Nitroglycerin 0.4 mcg Orally Given by Vickie Etienne RN tsites 04:32 PM Time: 16:31 Nitroglycerin 100 mcg Intracoronary Given by Kashif Esquivel MD tsites 04:32 PM HR=63 bpm, VCJC=267/82 mmhg, SpO2=98.0 %, Resp=18 B/min, Comment=SB 04:33 PM .014 Whisper 300cm guide wire across target lesion- successful. reused? No tsites 04:34 PM HR=54 bpm, DBQU=923/80 mmhg, SpO2=98.0 %, Resp=18 B/min, Comment=SB 04:38 PM HR=56 bpm, FHDI=957/83 mmhg, SpO2=96.0 %, Resp=14 B/min, Comment=SB 04:40 PM Physician reviewing films tsites 04:[address] Hector reviewed films tsites 04:[address] Russ consulted tsites 04:43 PM HR=53 bpm, BMQE=138/74 mmhg, SpO2=94.0 %, Resp=24 B/min, Comment=SB 04:45 PM 1.5 mm x 6 mm Mini Trek OTW balloon across target lesion- successful. reused? No tsites 04:47 PM Recorded ECG: HR=58 Condition=Condition 1 04:48 PM HR=61 bpm, NIBP=88/62 mmhg, SpO2=95.0 %, Resp=6 B/min 04:48 PM NIBP STAT measurement started. 04:49 PM HR=51 bpm, JAFO=495/75 mmhg, SpO2=97.0 %, Resp=18 B/min, Comment=SB 04:51 PM Balloon inflated @ 8 carlos for 10 seconds tsites 04:51 PM Balloon inflated @ 6 carlos for 11 seconds tsites 04:51 PM Balloon inflated @ 6 carlos for 6 seconds tsites 04:52 PM NIBP STAT measurement started. 04:53 PM HR=52 bpm, MUXT=801/79 mmhg, SpO2=94.0 %, Resp=19 B/min 04:54 PM Time: 16:54 Heparin 1000 units Intravenous Given by Vickie Etienne RN tsites 04:55 PM ACT drawn tsites 04:56 PM Balloon catheter removed intact. tsites 04:57 PM 2.0 mm x 12 mm Emerge Monorail balloon across target lesion- successful. reused? No tsites 04:58 PM HR=51 bpm, RCNS=888/84 mmhg, SpO2=96.0 %, Resp=23 B/min 04:58 PM Balloon inflated @ 6 carlos for 6 seconds tsites 04:59 PM Balloon inflated @ 6 carlos for 2 seconds tsites 04:59 PM Balloon inflated @ 10 carlos for 8 seconds tsites 04:59 PM Balloon inflated @ 10 carlos for 4 seconds tsites 04:59 PM Balloon inflated @ 10 carlos for 3 seconds tsites 05:00 PM Balloon inflated @ 10 carlos for 5 seconds tsites 05:00 PM Balloon inflated @ 10 carlos for 5 seconds tsites 05:00 PM Balloon inflated @ 10 carlos for 3 seconds tsites 05:02 PM Balloon catheter removed intact. tsites 05:02 PM 2.0 mm x 20 mm Emerge Monorail balloon across target lesion- successful. reused? No tsites 05:02 PM Balloon inflated @ 10 carlos for 12 seconds tsites 05:02 PM Balloon inflated @ 10 carlos for 7 seconds tsites 05:03 PM Balloon inflated @ 10 carlos for 4 seconds tsites 05:03 PM HR=51 bpm, QSVE=669/62 mmhg, SpO2=97.0 %, Resp=18 B/min 05:03 PM Balloon inflated @ 10 carlos for 5 seconds tsites 05:04 PM Balloon catheter removed intact. tsites 05:07 PM 2.25mm x 20mm Synergy drug-eluting stent across target lesion- successful Lot #[id number] tsites 05:07 PM Stent deployed @ 9 carlos for 5 seconds tsites 05:08 PM Stent balloon reinflated @ 11 carlos for 7 seconds tsites 05:08 PM Stent delivery system removed intact. tsites 05:08 PM HR=51 bpm, BVLZ=951/63 mmhg, SpO2=98.0 %, Resp=13 B/min 05:09 PM 2.5mm x 20mm Synergy drug-eluting stent across target lesion- successful Lot #[id number] tsites 05:09 PM Time: 17:09 Versed 0.5 mg Intravenous Given by Vickie Etienne RN tsites 05:09 PM Time: 17:09 Fentanyl 25 mcg Intravenous Given by Vickie Etienne RN tsites 05:10 PM At 17:10 the ACT was 322 seconds. tsites 05:10 PM Stent deployed @ 9 carlos for 7 seconds tsites 05:11 PM NIBP STAT measurement started. 05:11 PM Stent balloon reinflated @ 11 carlos for 8 seconds tsites 05:11 PM HR=50 bpm, EKBP=611/94 mmhg, SpO2=96.0 %, Resp=22 B/min, Comment=SB 05:11 PM Recorded ECG: HR=50 Condition=Condition 1 05:12 PM Stent delivery system removed intact. tsites 05:13 PM HR=49 bpm, LPFX=632/45 mmhg, WiA4=490.0 %, Resp=20 B/min, Comment=SB 05:13 PM NIBP STAT measurement started. 05:14 PM HR=50 bpm, NIBP=85/55 mmhg, HuT9=240.0 %, Resp=21 B/min, Comment=SB 05:14 PM NIBP STAT measurement started. 05:15 PM HR=50 bpm, ROIC=593/67 mmhg, SpO2=98.0 %, Resp=24 B/min, Comment=SB 05:15 PM 2.0 mm x 20mm NC Trek Rx balloon across target lesion- successful. reused? No tsites 05:15 PM Balloon inflated @ 16 carlos for 4 seconds tsites 05:16 PM Balloon inflated @ 16 carlos for 6 seconds tsites 05:16 PM Balloon inflated @ 6 carlos for 6 seconds tsites 05:17 PM Balloon inflated @ 6 carlos for 8 seconds tsites 05:17 PM Balloon catheter removed intact. tsites 05:18 PM HR=51 bpm, ZOMN=475/72 mmhg, SpO2=95.0 %, Resp=16 B/min, Comment=SB 05:23 PM pronto thrombectomy pass # 1 for 25 ml total fluid. tsites 05:23 PM HR=50 bpm, UGON=594/102 mmhg, SpO2=95.0 %, Resp=10 B/min, Comment=SB 05:23 PM Time: 17:23 Nitroglycerin 100 mcg Intracoronary Given by Kashif Esquivel MD tsites 05:24 PM Time: 17:24 Nitroglycerin 200 mcg Intracoronary Given by Kashif Esquivel MD tsites 05:26 PM Recorded ECG: HR=52 Condition=Condition 1 05:27 PM Time: 17:27 Nipride 50 mcg Intracoronary Given by Kashif Esquivel MD tsites 05:28 PM Time: 17:27 Nipride 50 mcg Intracoronary Given by Kashif Esquivel MD tsites 05:28 PM NIBP STAT measurement started. 05:29 PM HR=59 bpm, NIBP=94/48 mmhg, SpO2=92.0 %, Resp=12 B/min 05:29 PM BMW reinserted tsites 05:31 PM NIBP STAT measurement started. 05:32 PM HR=48 bpm, CJNK=223/78 mmhg, SpO2=94 %, Resp=15 B/min 05:32 PM 2.0 mm x 12 mm Emerge Monorail balloon across target lesion- successful. reused? No tsites 05:33 PM HR=49 bpm, NIBP=72/33 mmhg, SpO2=94 %, Resp=12 B/min 05:33 PM NIBP STAT measurement started. 05:35 PM HR=48 bpm, OYSC=785/77 mmhg, SpO2=95 %, Resp=11 B/min 05:36 PM Balloon catheter removed intact. tsites 05:36 PM 1.5 mm x 20 mm Emerge Monorail push balloon across target lesion- successful. reused? No tsites 05:36 PM Balloon inflated @ 10 carlos for 5 seconds tsites 05:37 PM Balloon inflated @ 10 carlos for 2 seconds tsites 05:37 PM Balloon inflated @ 12 carlos for 10 seconds tsites 05:38 PM HR=49 bpm, GGEH=966/80 mmhg, SpO2=97 %, Resp=12 B/min 05:38 PM Balloon catheter removed intact. tsites 05:39 PM 2.75 mm x 20mm NC Trek Rx balloon across target lesion- successful. reused? No tsites 05:39 PM Balloon inflated @ 16 carlos for 6 seconds tsites 05:40 PM Balloon inflated @ 16 carlos for 6 seconds tsites 05:40 PM Balloon inflated @ 18 carlos for 6 seconds tsites 05:41 PM Balloon inflated @ 16 carlos for 9 seconds tsites 05:41 PM Balloon catheter removed intact. tsites 05:42 PM Time: 17:42 Nipride 50 mcg Intracoronary Given by Kashif Esquivel MD tsites 05:42 PM Time: 17:42 0.9NaCl 200 ml/hr Intravenous Given by Vickie Etienne RN tsites 05:43 PM HR=60 bpm, TCFQ=204/64 mmhg, SpO2=96 %, Resp=15 B/min 05:43 PM 2.0 mm x 8 mm Emerge Monorail balloon across target lesion- successful. reused? No tsites 05:45 PM Balloon catheter removed intact. tsites 05:45 PM Guide wire removed intact. tsites 05:47 PM Balloon inflated @ 10 carlos for 4 seconds tsites 05:48 PM Balloon inflated @ 10 carlos for 3 seconds tsites 05:48 PM Balloon inflated @ 6 carlos for 3 seconds tsites 05:48 PM Balloon inflated @ 10 carlos for 3 seconds tsites 05:49 PM HR=49 bpm, SBRC=440/83 mmhg, SpO2=98 %, Resp=19 B/min 05:50 PM Guide wire removed intact. tsites 05:51 PM Time: 17:50 Nipride 100 mcg Intracoronary Given by Kashif Esquivel MD tsites 05:54 PM HR=49 bpm, LZOW=982/89 mmhg, SpO2=96 %, Resp=23 B/min 05:56 PM Time: 17:56 Morphine 2 mg Intravenous Given by Vickie Etienne RN tsites 05:57 PM bmw wire reinserted tsites 05:58 PM HR=50 bpm, TWXM=295/84 mmhg, SpO2=98 %, Resp=13 B/min 05:59 PM 2.25mm x 12mm Synergy drug-eluting stent across target lesion- successful Lot #[id number] tsites 05:59 PM Balloon inflated @ 10 carlos for 5 seconds tsites 05:59 PM Time: 17:59 Versed 1 mg Intravenous Given by Vickie Etienne RN tsites 06:00 PM Stent balloon reinflated @ 16 carlos for 6 seconds tsites 06:00 PM Stent balloon reinflated @ 16 carlos for 3 seconds tsites 06:01 PM Balloon inflated @ 12 carlos for 4 seconds tsites 06:01 PM Stent balloon reinflated @ 12 carlos for 3 seconds tsites 06:01 PM Balloon inflated @ 12 carlos for 4 seconds tsites 06:02 PM Stent balloon reinflated @ 16 carlos for 3 seconds tsites 06:02 PM Stent delivery system removed intact. tsites 06:03 PM HR=60 bpm, QTMS=530/72 mmhg, SpO2=91.0 %, Resp=15 B/min 06:03 PM 3.0 mm x 15mm NC Emerge balloon across target lesion- successful. reused? No tsites 06:03 PM ACT drawn tsites 06:05 PM Time: 18:05 Reopro Bolus: 10.8 ml Intracoronary Given by Kashif Esquivel MD Love pump tsites 06:06 PM Balloon inflated @ 18 carlos for 6 seconds tsites 06:06 PM Balloon inflated @ 18 carlos for 10 seconds tsites 06:07 PM Balloon inflated @ 20 carlos for 6 seconds tsites 06:07 PM Time: 18:07 Versed 1 mg Intravenous Given by Vickie Etienne RN tsites 06:08 PM Balloon inflated @ 20 carlos for 5 seconds tsites 06:08 PM Balloon inflated @ 20 carlos for 6 seconds tsites 06:08 PM HR=56 bpm, XBXS=717/80 mmhg, SpO2=96 %, Resp=16 B/min 06:09 PM At 18:09 the ACT was 400 seconds. tsites 06:11 PM Balloon catheter removed intact. tsites 06:13 PM Guide catheter removed intact. tsites 06:13 PM 6Fr JR 4 Runway guide catheter was used to cannulate the PCI vessel successfully. reused? No tsites 06:13 PM HR=55 bpm, ENFJ=028/84 mmhg, SpO2=94 %, Resp=9 B/min 06:13 PM RCA angiography performed in multiple views. tsites 06:16 PM Recorded Pressure: LV, HR=60, Condition=Condition 1 (Left Ventricle) LV 132/24/35 06:16 PM Recorded Pressure: LV, HR=61, Condition=Condition 1 (Left Ventricle) LV 141/25/31 06:18 PM HR=60 bpm, UHWE=691/92 mmhg, SpO2=92.0 %, Resp=18 B/min 06:18 PM Sheath exchanged for a 8 Fr 11 cm Maquet Introducer sheath [id number] tsites 06:19 PM 8 Fr Maquet Balloon Pump IABP catheter inserted into right Femoral artery, 40 cc, *ACC* catheter inserted 1 tsites 06:23 PM HR=62 bpm, NIBP=95/71 mmhg, SpO2=95 %, Resp=22 B/min 06:24 PM Recorded ECG: HR=58 Condition=Condition 1 06:24 PM NIBP STAT measurement started. 06:25 PM HR=58 bpm, NIBP=89/60 mmhg, SpO2=95.0 %, Resp=21 B/min 06:25 PM NIBP STAT measurement started. 06:27 PM HR=61 bpm, MBLH=667/99 mmhg, SpO2=96 %, Resp=10 B/min 06:29 PM HR=55 bpm, PVKE=885/111 mmhg, SpO2=95 %, Resp=35 B/min 06:31 PM Time: 18:30 Morphine 1 mg Intravenous Given by Vickie Etienne RN tsites 06:33 PM HR=62 bpm, NIBP=76/50 mmhg, SpO2=85 %, Resp=26 B/min 06:38 PM HR=60 bpm, NIBP=63/32 mmhg, Resp=14 B/min 06:43 PM NIBP=82/71 mmhg 06:45 PM IABP Settings: 1:1 ratio Pressure trigger tsites 06:48 PM IABP Augmented pressure, mean: 121 tsites 06:48 PM IABP Systemic BP: 119/94 tsites 06:48 PM IABP sheath sutured to skin tsites 06:49 PM Procedure completed at 18:49 tsites 06:50 PM Sign out completed: Radiation Dose 6564 mGy Fluoro Time: 68.5 Isovue 370 - 200ml contrast 297 ml given by Terrence Esquivel MD. Complications: NoneCardiac Rehab Consult needed: YesConfirmed administered medications: Yes tsites 06:50 PM Vitals capture stopped. 06:50 PM Isovue 370 - 200ml,3 Bottle(s) used. tsites 06:50 PM Sheath left in place to be pulled on floor/holding areaV+Pad tsites 06:50 PM Estimated Blood Loss: less than 20cc tsites 06:50 PM Post ECG Sinus Bradycardia tsites 06:50 PM Post Blood Pressure 126/69 tsites 06:50 PM 18:50 Post Pulses Bilateral DP & PT 1+ tsites 06:51 PM Information taught Cardiac Cath and PCI tsites 06:51 PM Education needs Procedure, Plan of Care, and Responsibilities of Patient in Care tsites 07:07 PM Learning barriers :None tsites 07:07 PM Education Methods Verbal tsites 07:07 PM Education evaluation Able to repeat information tsites 07:07 PM Site status No bleeding/hematoma - Rt Groin as reported by Jimmie Villegas RT (R) at 19:07 tsites 07:07 PM Opsite applied tsites 07:07 PM Report given to roel RN Pt taken to ICU Room #11. 19:07 tsites 07:07 PM director of labor and delivery staff with patient in icu tsites 07:07 PM Delay to floor No tsites 07:08 PM Patient out of room: 19:08 tsites 07:08 PM Family placed in consult room. tsites 07:08 PM Complications: Dissection tsites 07:09 PM called for stat echo tsites 07:16 PM Lesion found in 1st Diagonal. Pre Stenosis: 95 Pre NASIM Flow: 2: Partial Flow/Perfusion (> 1 but < 3) tsites Complications Complication None Dissection Hemodynamics Pressures Site Systolic/A Wave Diastolic/V Wave Mean AO 115 67 87 LV 134 13 18 LV 135 14 18 AO 142 76 102 AO 158 72 111 LV 132 24 35 LV 141 25 31 Post Procedure Information Blood Pressure: 126/69 mmHg Rhythm: Sinus Bradycardia Post procedural instructions were given Closure Device Time Device Success/Fail 07/11/2017 7:10:00 PM Manual Compression Site Checks Time Location Status Staff Sheath In? Note 07:07 PM Rt Groin No bleeding/hematoma Jimmie Villegas RT (R) Pulses Time Site Pre-Procedure Post-Procedure Note Bilateral radial 2+ 6:50:00 PM Bilateral DP & PT 1+ Updated by Venessa Wilson RT (R) on 07/11/2017 7:22:33 PM RT Vanessa electronically signed on 07/11/2017 7:23:08 PM with status of Final
[2017-07-11] MEDS ORDERED: Tirofiban 12.5 MG/250ML 12.5 MG/250 ML BAG IVC SCH (20:00)
[2017-07-11] MEDS: Heparin 25,000 UNIT/500 ML D5W 25,000 UNIT/500 ML BAG IVC SCH (20:13)
[2017-07-11] MEDS ORDERED: *HR* LORazepam 2 MG/ML VIAL IVP ONE (20:23)
[2017-07-11 21:15] VITALS: BP 127/55
[2017-07-11] MEDS ORDERED: *HR* Adenosine 6 MG/2 ML VIAL IVP ONE (21:41)
--- NOTE | 2017-07-11 22:40 | Invasive Diagnostic Lab Proc ---
Name: Savannah Castellanos Date of Study: 07/11/2017 Date: 1935 Ht: 61.0in Medical Record#: [id number] Age: 81 Wt: 189.60lb Gender: Female BSA: 1.85 Order #: [id number] BMI: 35.8 Physicians Procedure Physician: Terrence Esquivel MD Referring MD: Referring MD: Staff Name Position Time In Jimmie Villegas RT (R) Scrub 09:20 PM Vickie Etienne RN Stripper Soft Plastic 09:20 PM Martita Luke RN Monitor 09:20 PM Indications Indication Non-Stemi Procedures Performed Procedure PRQ CARD PADMAJA STENT W/ANGIO 1 VSL Pre-Procedure Checklist Informed consent is complete signed and on chart. H&P is on chart. ID band is on and ID verified with patient. Patient NPO for procedure The procedure was described for the patient and questions were answered. Blood Pressure: 145/94 ECG is on chart. Rhythm: ST elevation Plan of Care Patient will tolerate the procedure without complications. Adequate level of comfort will be maintained. Hemodynamics will remain stable Patient will recover from procedure without complications. Respiratory function will be maintained. Cardiac rhythm will remain stable. Patient temperature will be maintained. Patient and/or family have verbalized understanding of the procedure. Patient Education Chief Complaint/Reason for Test: Cardiac Cath Developmental Category: Geriatric (65+ years) Learning Barriers: None Education Needs: Plan of Care Education Method: Verbal Information Taught: Cardiac Cath Educational Evaluation: Able to repeat information Intravenous Access Time IV Size Location DC'd Fluid/Drip Rate Units RN 20g 1 /" Patent On Arrival 0.9NaCl 25 ml/hr Vickie Etienne RN Allergies Atorvastatin Ibuprofen Acetaminophen IRON Vital Signs Time BP (mmHg) HR (bpm) O2 Sat. RR (bpm) LOC 09:21 PM / % 4 = Oriented but drowsy 09:21 PM / % 4 = Oriented but drowsy 09:37 PM / % 4 = Oriented but drowsy 09:18 PM 143 / 75 57 94 % 14 09:23 PM 149 / 79 60 96 % 19 09:28 PM 163 / 78 58 97 % 18 09:33 PM 144 / 95 56 98 % 20 09:38 PM 136 / 97 59 98 % 21 09:45 PM 134 / 79 56 98 % 17 09:48 PM 145 / 73 63 97 % 17 09:53 PM 149 / 90 60 97 % 14 09:58 PM 145 / 93 59 98 % 20 10:03 PM 78 / 60 59 91 % 15 10:07 PM / % 4 = Oriented but drowsy Procedural Medications Time Medication Dose Units Method Given By 09:21 PM Oxygen 3 L/min nasal cannula Vickie Etienne RN 09:23 PM Lidocaine 2% 10 ml Subcutaneous Terrence Esquivel MD 09:16 PM Aggrastat 7.5 ml/hr Intravenous 09:44 PM Adenosine 60 mg Intracoronary Kashif Esquivel MD 09:44 PM Adenosine 60 mg Intracoronary Kashif Esquivel MD ASA Classification: CLASS II- Mild systemic disease (i.e. well-controlled diabetes, hypertension, asthma, cigarette smoking) Emergent Procedure: ASA score is assumed Hany Score Preprocedure Postprocedure Activity 2- Moves 4 extremities sustained head lift Activity Circulation 2- SBP +/= 20 points of pre-anesthetic level Circulation Consciousness 2- Awake and alert oriented x 3 Consciousness O2 Saturation 2- Able to maintain O2 satruation of 92% on room air O2 Saturation Respiratory 2- Able to deep breathe and cough well Respiratory Total Score 10 Total Score Contrast Agent: Isovue Diagnostic Contrast: 60 ml Total Contrast: 60 ml Fluoro Dose: 711 mGy Procedure Log Time Note Enter By 09:14 PM Pt arrived to optical lab technician 2 at 21:14 tsites 09:15 PM Physician arrived 21:15 tsites 09:15 PM Meet and greet completed tsites 09:15 PM Sign in performed according to hospital policy. tsites 09:16 PM Procedure start 21:16 tsites 09:16 PM Patient arrived at 21:16 with Aggrastat Intravenous drip @ 15.5 ml/hr tsites 09:17 PM Vitals capture started with the following parameters, Patient=Adult, Interval=5 min, Initial Xkzzgjkj=289 mmHg, Deflation Rate=5 mmHg, Cuff placed on Right Arm 09:18 PM CathStat 09:18 PM Patient is currently not having any chest pain at this time tsites 09:18 PM HR=57 bpm, GQRN=447/75 mmhg, SpO2=94.0 %, Resp=14 B/min 09:19 PM Recorded ECG: HR=70 Condition=Condition 1 09:20 PM Case Delayed No, inpatient tsites 09:20 PM Jimmie Villegas RT (R) Position: Scrub Time in: 21:20 tsites 09:20 PM Vickie Etienne RN Position: Stripper Soft Plastic Time in: :20 tsites 09:20 PM Martita Luke RN Position: Monitor Time in: 21:20 tsites 09:20 PM Hair removed from procedure site in procedure lab using clippers. Left groin prepped with Chloraprep by Venessa Wilson RT (R), safety strap applied then patient was draped. Skin intact. tsites 09: PM Time: 21: Oxygen on at 3 L/min per nasal cannula by Vickie Etienne RN tsites 09: PM Pressure channel 1 zeroed. 09:21 PM Recorded ECG: HR=62 Condition=Condition 1 09: PM Time: 21:21 Patient comfortable and pain free: Yes tsites 09: PM Time: 21:21LOC: 4 = Oriented but drowsy tsites 09:22 PM Clinical Presentation: Unstable angina tsites 09:23 PM Time: :23 10 ml Lidocaine 2% to left groin Subcutaneous Given by Terrence Esquivel MD tsites 09:23 PM HR=60 bpm, KWWI=782/79 mmhg, SpO2=96.0 %, Resp=19 B/min, Comment=st elevation 09:27 PM ASA Class CLASS II- Mild systemic disease (i.e. well-controlled diabetes, hypertension, asthma, cigarette smoking) tsites 09:28 PM Micro-Introducer Kit utilized for sheath placement tsites 09:28 PM Access obtained by percutaneous puncture. 6Fr 11cm Cordis Saadia sheath placed in left Femoral artery. [id number] tsites 09:28 PM HR=58 bpm, OEOL=812/78 mmhg, SpO2=97.0 %, Resp=18 B/min, Comment=st elevation 09:30 PM 6Fr XB LAD 3.5 [place] Bright-Tip guide catheter was used to cannulate the PCI vessel successfully. reused? No tsites 09:30 PM .014 [employer] [place] 190cm guide wire across target lesion- successful. reused? No tsites 09:30 PM Recorded Pressure: Ao, HR=58, Condition=Condition 1 (Aorta) Ao 152/84/124 09:31 PM Lesion found in Mid LAD. Pre Stenosis: 100 Pre NASIM Flow: 0: No Flow/No perfusion tsites 09:33 PM Inflation device was opened. tsites 09:33 PM HR=56 bpm, RLFP=722/95 mmhg, SpO2=98.0 %, Resp=20 B/min 09:34 PM 2.25mm x 16mm Synergy drug-eluting stent across target lesion- successful Lot #[id number] tsites 09:34 PM Stent deployed @ 9 carlos for 8 seconds tsites 09:35 PM Stent balloon reinflated @ 10 carlos for 7 seconds tsites 09:35 PM Stent balloon reinflated @ 10 carlos for 6 seconds tsites 09:35 PM Stent delivery system removed intact. tsites 09:36 PM Time: 21:21 Patient comfortable and pain free: Yes tsites 09:37 PM Time: 21:21LOC: 4 = Oriented but drowsy tsites 09:37 PM 2.25mm x 24mm Synergy drug-eluting stent across target lesion- successful Lot #[id number] tsites 09:37 PM Stent deployed @ 16 carlos for 10 seconds tsites 09:38 PM Stent balloon reinflated @ 16 carlos for 6 seconds tsites 09:38 PM Stent balloon reinflated @ 16 carlos for 4 seconds tsites 09:38 PM HR=59 bpm, YUBV=151/97 mmhg, SpO2=98 %, Resp=21 B/min 09:38 PM Stent balloon reinflated @ 16 carlos for 5 seconds tsites 09:39 PM Stent balloon reinflated @ 4 carlos for 10 seconds tsites 09:39 PM Stent delivery system removed intact. tsites 09:44 PM Time: 21:44 Adenosine 60 mg Intracoronary Given by Kashif Esquivel MD tsites 09:45 PM Time: 21:44 Adenosine 60 mg Intracoronary Given by Kashif Esquivel MD tsites 09:45 PM HR=56 bpm, NBEV=176/79 mmhg, SpO2=98 %, Resp=17 B/min 09:46 PM Wire removed tsites 09:48 PM wire reinserted catheter removed tsites 09:48 PM HR=63 bpm, OZSL=042/73 mmhg, SpO2=97 %, Resp=17 B/min 09:50 PM Bolus angiogram of left Femoral complete: 4 ml/sec for a total of 7 mls tsites 09:50 PM Procedure completed at 21:50 tsites 09:51 PM Did you address NASIM flow and Dominance? Yes tsites 09:51 PM Coronary Dominance: right tsites 09:51 PM Sign out completed: Radiation Dose 711 mGy Fluoro Time: 7.6 Isovue 370 - 200ml contrast 60 ml given by Terrence Esquivel MD. Complications: NoneCardiac Rehab Consult needed: YesConfirmed administered medications: Yes tsites 09:51 PM Isovue 370 - 200ml,1 Bottle(s) used. tsites 09:52 PM Arterial sheath pulled, Angio-seal closure device used and was Successful [id number] S/N. tsites 09:52 PM Time: 21:36 Patient comfortable and pain free: Yes tsites 09:52 PM Time: 21:37LOC: 4 = Oriented but drowsy tsites 09:52 PM Estimated Blood Loss: minimal tsites 09:[address] elevation tsites 09:53 PM Post Blood Pressure 145/73 tsites 09:53 PM HR=60 bpm, XWBR=990/90 mmhg, SpO2=97 %, Resp=14 B/min 09:58 PM HR=59 bpm, BJOR=511/93 mmhg, SpO2=98 %, Resp=20 B/min 10:00 PM 22:00 Post Pulses Bilateral DP & PT 1+ tsites 10:00 PM Information taught Cardiac Cath and PCI tsites 10:00 PM Education needs Procedure, Plan of Care, and Responsibilities of Patient in Care tsites 10:01 PM Learning barriers :None tsites 10:01 PM Education evaluation Able to repeat information tsites 10:01 PM Site status No bleeding/hematoma - Lt Groin as reported by Jimmie Villegas RT (R) at 22:01 tsites 10:01 PM Opsite applied tsites 10:01 PM Report given to [place] [facility] nurse RN Pt taken to [facility] Room #. 22:01 tsites 10:01 PM Plavix, Effient or Brilinta given No, given earlier tsites 10:01 PM Delay to floor No tsites 10:02 PM Family placed in consult room. tsites 10:03 PM Pt to be transfered to [place] at this time tsites 10:03 PM HR=59 bpm, NIBP=78/60 mmhg, SpO2=91.0 %, Resp=15 B/min, Comment=st elevation 10:07 PM Time: 21:52 Patient comfortable and pain free: Yes tsites 10:11 PM med flight here now getting patient ready for transport tsites 10:12 PM report also given to med flight nurses tsites 10:18 PM hematoma noted to left groin. Jimmie and Venessa Marques holding pressure at this time tsites 10:26 PM Time: 22:07LOC: 4 = Oriented but drowsy tsites 10:26 PM Time: 22:07 Patient comfortable and pain free: Yes tsites 10:26 PM notified. Fem stop ordered tsites 10:27 PM Manual pressure applied for 5 minutes, Fem stop applied tsites 10:32 PM patient out of room at this time, pt is hemodynamically stable at this time tsites 10:32 PM tsites Complications Complication None Hemodynamics Pressures Site Systolic/A Wave Diastolic/V Wave Mean AO 152 84 124 Post Procedure Information Blood Pressure: 145/73 mmHg Rhythm: St elevation Post procedural instructions were given Closure Device Time Device Success/Fail 07/11/2017 10:00:00 PM Angio-seal Evolution Successful Site Checks Time Location Status Staff Sheath In? Note 10:01 PM Lt Groin No bleeding/hematoma Jimmie Villegas RT (R) Pulses Time Site Pre-Procedure Post-Procedure Note Bilateral DP & PT 1+ 10:00:00 PM Bilateral DP & PT 1+ Updated by Venessa Wilson RT (R) on 07/11/2017 10:33:06 PM Venessa Wilson RT electronically signed on 07/11/2017 10:34:29 PM with status of Final
[2017-07-12] MEDS ORDERED: Aspirin 81 MG TAB.CHEW PO SCH (09:00)
--- NOTE | 2017-07-12 20:56 | Electrocardiograph Report ---
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
--- NOTE | 2017-07-13 13:15 | Invasive Diagnostic Lab Proc ---
Name: Savannah Castellanos Date of Study: 07/11/2017 Date: 1935 Ht: 61.0in Medical Record#: [id number] Age: 81 Wt: 189.60lb Gender: Female BSA: 1.85 Order #: [id number] BMI: 35.8 Physicians Procedure Physician: Terrence Esquivel MD Referring MD: Referring MD: Staff Name Position Time In Jimmie Villegas RT (R) Scrub 09:20 PM Vickie Etienne RN Auto Body Repair Teacher 09:20 PM Martita Luke RN Monitor 09:20 PM Indications Indication Non-Stemi Procedures Performed Procedure PRQ CARD PADMAJA STENT W/ANGIO 1 VSL Pre-Procedure Checklist Informed consent is complete signed and on chart. H&P is on chart. ID band is on and ID verified with patient. Patient NPO for procedure The procedure was described for the patient and questions were answered. Blood Pressure: 145/94 ECG is on chart. Rhythm: ST elevation Plan of Care Patient will tolerate the procedure without complications. Adequate level of comfort will be maintained. Hemodynamics will remain stable Patient will recover from procedure without complications. Respiratory function will be maintained. Cardiac rhythm will remain stable. Patient temperature will be maintained. Patient and/or family have verbalized understanding of the procedure. Patient Education Chief Complaint/Reason for Test: Cardiac Cath Developmental Category: Geriatric (65+ years) Learning Barriers: None Education Needs: Plan of Care Education Method: Verbal Information Taught: Cardiac Cath Educational Evaluation: Able to repeat information Intravenous Access Time IV Size Location DC'd Fluid/Drip Rate Units RN 20g 1 /" Patent On Arrival 0.9NaCl 25 ml/hr Vickie Etienne RN Allergies Atorvastatin Ibuprofen Acetaminophen IRON Vital Signs Time BP (mmHg) HR (bpm) O2 Sat. RR (bpm) LOC 09:21 PM / % 4 = Oriented but drowsy 09:21 PM / % 4 = Oriented but drowsy 09:37 PM / % 4 = Oriented but drowsy 09:18 PM 143 / 75 57 94 % 14 09:23 PM 149 / 79 60 96 % 19 09:28 PM 163 / 78 58 97 % 18 09:33 PM 144 / 95 56 98 % 20 09:38 PM 136 / 97 59 98 % 21 09:45 PM 134 / 79 56 98 % 17 09:48 PM 145 / 73 63 97 % 17 09:53 PM 149 / 90 60 97 % 14 09:58 PM 145 / 93 59 98 % 20 10:03 PM 78 / 60 59 91 % 15 10:07 PM / % 4 = Oriented but drowsy Procedural Medications Time Medication Dose Units Method Given By 09:21 PM Oxygen 3 L/min nasal cannula Vickie Etienne RN 09:23 PM Lidocaine 2% 10 ml Subcutaneous Terrence Esquivel MD 09:16 PM Aggrastat 7.5 ml/hr Intravenous 09:44 PM Adenosine 60 mg Intracoronary Kashif Esquivel MD 09:44 PM Adenosine 60 mg Intracoronary Kashif Esquivel MD ASA Classification: CLASS II- Mild systemic disease (i.e. well-controlled diabetes, hypertension, asthma, cigarette smoking) Emergent Procedure: ASA score is assumed Hany Score Preprocedure Postprocedure Activity 2- Moves 4 extremities sustained head lift Activity Circulation 2- SBP +/= 20 points of pre-anesthetic level Circulation Consciousness 2- Awake and alert oriented x 3 Consciousness O2 Saturation 2- Able to maintain O2 satruation of 92% on room air O2 Saturation Respiratory 2- Able to deep breathe and cough well Respiratory Total Score 10 Total Score Contrast Agent: Isovue Diagnostic Contrast: 60 ml Total Contrast: 60 ml Fluoro Dose: 711 mGy Procedure Log Time Note Enter By 09:14 PM Pt arrived to slab puller 2 at 21:14 tsites 09:15 PM Physician arrived 21:15 tsites 09:15 PM Meet and greet completed tsites 09:15 PM Sign in performed according to hospital policy. tsites 09:16 PM Procedure start 21:16 tsites 09:16 PM Patient arrived at 21:16 with Aggrastat Intravenous drip @ 15.5 ml/hr tsites 09:17 PM Vitals capture started with the following parameters, Patient=Adult, Interval=5 min, Initial Ezccfyes=280 mmHg, Deflation Rate=5 mmHg, Cuff placed on Right Arm 09:18 PM CathStat 09:18 PM Patient is currently not having any chest pain at this time tsites 09:18 PM HR=57 bpm, YRNQ=235/75 mmhg, SpO2=94.0 %, Resp=14 B/min 09:19 PM Recorded ECG: HR=70 Condition=Condition 1 09:20 PM Case Delayed No, inpatient tsites 09:20 PM Jimmie Villegas RT (R) Position: Scrub Time in: 21:20 tsites 09:20 PM Vickie Etienne RN Position: Auto Body Repair Teacher Time in: :20 tsites 09:20 PM Martita Luke RN Position: Monitor Time in: 21:20 tsites 09:20 PM Hair removed from procedure site in procedure lab using clippers. Left groin prepped with Chloraprep by Venessa Wilson RT (R), safety strap applied then patient was draped. Skin intact. tsites 09: PM Time: 21: Oxygen on at 3 L/min per nasal cannula by Vickie Etienne RN tsites 09: PM Pressure channel 1 zeroed. 09:21 PM Recorded ECG: HR=62 Condition=Condition 1 09: PM Time: 21:21 Patient comfortable and pain free: Yes tsites 09: PM Time: 21:21LOC: 4 = Oriented but drowsy tsites 09:22 PM Clinical Presentation: Unstable angina tsites 09:23 PM Time: :23 10 ml Lidocaine 2% to left groin Subcutaneous Given by Terrence Esquivel MD tsites 09:23 PM HR=60 bpm, NLOD=807/79 mmhg, SpO2=96.0 %, Resp=19 B/min, Comment=st elevation 09:27 PM ASA Class CLASS II- Mild systemic disease (i.e. well-controlled diabetes, hypertension, asthma, cigarette smoking) tsites 09:28 PM Micro-Introducer Kit utilized for sheath placement tsites 09:28 PM Access obtained by percutaneous puncture. 6Fr 11cm Cordis Saadia sheath placed in left Femoral artery. [id number] tsites 09:28 PM HR=58 bpm, BZKK=556/78 mmhg, SpO2=97.0 %, Resp=18 B/min, Comment=st elevation 09:30 PM 6Fr XB LAD 3.5 [place] Bright-Tip guide catheter was used to cannulate the PCI vessel successfully. reused? No tsites 09:30 PM .014 [employer] [place] 190cm guide wire across target lesion- successful. reused? No tsites 09:30 PM Recorded Pressure: Ao, HR=58, Condition=Condition 1 (Aorta) Ao 152/84/124 09:31 PM Lesion found in Mid LAD. Pre Stenosis: 100 Pre NASIM Flow: 0: No Flow/No perfusion tsites 09:33 PM Inflation device was opened. tsites 09:33 PM HR=56 bpm, JAAP=543/95 mmhg, SpO2=98.0 %, Resp=20 B/min 09:34 PM 2.25mm x 16mm Synergy drug-eluting stent across target lesion- successful Lot #[id number] tsites 09:34 PM Stent deployed @ 9 carlos for 8 seconds tsites 09:35 PM Stent balloon reinflated @ 10 carlos for 7 seconds tsites 09:35 PM Stent balloon reinflated @ 10 carlos for 6 seconds tsites 09:35 PM Stent delivery system removed intact. tsites 09:36 PM Time: 21:21 Patient comfortable and pain free: Yes tsites 09:37 PM Time: 21:21LOC: 4 = Oriented but drowsy tsites 09:37 PM 2.25mm x 24mm Synergy drug-eluting stent across target lesion- successful Lot #[id number] tsites 09:37 PM Stent deployed @ 16 carlos for 10 seconds tsites 09:38 PM Stent balloon reinflated @ 16 carlos for 6 seconds tsites 09:38 PM Stent balloon reinflated @ 16 carlos for 4 seconds tsites 09:38 PM HR=59 bpm, NWYJ=813/97 mmhg, SpO2=98 %, Resp=21 B/min 09:38 PM Stent balloon reinflated @ 16 carlos for 5 seconds tsites 09:39 PM Stent balloon reinflated @ 4 carlos for 10 seconds tsites 09:39 PM Stent delivery system removed intact. tsites 09:44 PM Time: 21:44 Adenosine 60 mg Intracoronary Given by Kashif Esquivel MD tsites 09:45 PM Time: 21:44 Adenosine 60 mg Intracoronary Given by Kashif Esquivel MD tsites 09:45 PM HR=56 bpm, SHAG=233/79 mmhg, SpO2=98 %, Resp=17 B/min 09:46 PM Wire removed tsites 09:48 PM wire reinserted catheter removed tsites 09:48 PM HR=63 bpm, IMUK=856/73 mmhg, SpO2=97 %, Resp=17 B/min 09:50 PM Bolus angiogram of left Femoral complete: 4 ml/sec for a total of 7 mls tsites 09:50 PM Procedure completed at 21:50 tsites 09:51 PM Did you address NASIM flow and Dominance? Yes tsites 09:51 PM Coronary Dominance: right tsites 09:51 PM Sign out completed: Radiation Dose 711 mGy Fluoro Time: 7.6 Isovue 370 - 200ml contrast 60 ml given by Terrence Esquivel MD. Complications: NoneCardiac Rehab Consult needed: YesConfirmed administered medications: Yes tsites 09:51 PM Isovue 370 - 200ml,1 Bottle(s) used. tsites 09:52 PM Arterial sheath pulled, Angio-seal closure device used and was Successful [id number] S/N. tsites 09:52 PM Time: 21:36 Patient comfortable and pain free: Yes tsites 09:52 PM Time: 21:37LOC: 4 = Oriented but drowsy tsites 09:52 PM Estimated Blood Loss: minimal tsites 09:[address] elevation tsites 09:53 PM Post Blood Pressure 145/73 tsites 09:53 PM HR=60 bpm, ZRSX=000/90 mmhg, SpO2=97 %, Resp=14 B/min 09:58 PM HR=59 bpm, DTOR=363/93 mmhg, SpO2=98 %, Resp=20 B/min 10:00 PM 22:00 Post Pulses Bilateral DP & PT 1+ tsites 10:00 PM Information taught Cardiac Cath and PCI tsites 10:00 PM Education needs Procedure, Plan of Care, and Responsibilities of Patient in Care tsites 10:01 PM Learning barriers :None tsites 10:01 PM Education evaluation Able to repeat information tsites 10:01 PM Site status No bleeding/hematoma - Lt Groin as reported by Jimmie Villegas RT (R) at 22:01 tsites 10:01 PM Opsite applied tsites 10:01 PM Report given to [facility] nurse RN at [facility]. 22:01 tsites 10:01 PM Plavix, Effient or Brilinta given No, given earlier tsites 10:01 PM Delay to floor No tsites 10:02 PM Family placed in consult room. tsites 10:03 PM Pt to be transfered to [facility] at this time tsites 10:03 PM HR=59 bpm, NIBP=78/60 mmhg, SpO2=91.0 %, Resp=15 B/min, Comment=st elevation 10:07 PM Time: 21:52 Patient comfortable and pain free: Yes tsites 10:11 PM med flight here now getting patient ready for transport tsites 10:12 PM report also given to med flight nurses tsites 10:18 PM hematoma noted to left groin. Jimmie and Venessa Marques holding pressure at this time tsites 10:26 PM Time: 22:07LOC: 4 = Oriented but drowsy tsites 10:26 PM Time: 22:07 Patient comfortable and pain free: Yes tsites 10:26 PM notified. Fem stop ordered tsites 10:27 PM Manual pressure applied for 5 minutes, Fem stop applied tsites 10:32 PM patient out of room at this time, pt is hemodynamically stable at this time tsites 10:32 PM patient transferred to [facility] per [facility] crew tsites Complications Complication None Hemodynamics Pressures Site Systolic/A Wave Diastolic/V Wave Mean AO 152 84 124 Post Procedure Information Blood Pressure: 145/73 mmHg Rhythm: St elevation Post procedural instructions were given Closure Device Time Device Success/Fail 07/11/2017 10:00:00 PM Angio-seal Evolution Successful Site Checks Time Location Status Staff Sheath In? Note 10:01 PM Lt Groin No bleeding/hematoma Jimmie Villegas RT (R) Pulses Time Site Pre-Procedure Post-Procedure Note Bilateral DP & PT 1+ 10:00:00 PM Bilateral DP & PT 1+ Updated by Venessa Wilson RT (R) on 07/13/2017 1:10:09 PM Venessa Wilson RT electronically signed on 07/13/2017 1:11:16 PM with status of Final
--- NOTE | 2017-07-13 13:32 | Invasive Diagnostic Lab Proc ---
Name: Savannah Castellanos Date of Study: 07/11/2017 Date: 1935 Ht: 61.0in Medical Record#: [id number] Age: 81 Wt: 189.82lb Gender: Female BSA: 1.85 Order #: [id number] BMI: 35.84 Physicians Procedure Physician: Terrence Esquivel MD Referring MD: Referring MD: Staff Name Position Time In Sites, Venessa RT (R) Monitor 03:35 PM Jimmie Villegas RT (R) Scrub 03:36 PM Vickie Etienne RN Cad Designer 03:36 PM Indications Indication Non-Stemi Procedures Performed Procedure L HRT ARTERY/VENTRICLE ANGIO PRQ CARD PADMAJA STENT W/ANGIO 1 VSL IABP INSERTION, PERCUTANEOUS Pre-Procedure Checklist Informed consent is complete signed and on chart. H&P is on chart. ID band is on and ID verified with patient. Patient NPO for procedure The procedure was described for the patient and questions were answered. Blood Pressure: 100/63 ECG is on chart. Rhythm: NSR Plan of Care Patient will tolerate the procedure without complications. Adequate level of comfort will be maintained. Hemodynamics will remain stable Patient will recover from procedure without complications. Respiratory function will be maintained. Cardiac rhythm will remain stable. Patient temperature will be maintained. Patient and/or family have verbalized understanding of the procedure. Patient Education Chief Complaint/Reason for Test: Cardiac Cath Developmental Category: Geriatric (65+ years) Developmentally Appropriate for Age: Yes Learning Barriers: None Education Needs: Plan of Care Education Method: Verbal Information Taught: Cardiac Cath Educational Evaluation: Able to repeat information Intravenous Access Time IV Size Location DC'd Fluid/Drip Rate Units RN 03:26 PM 20g 1 /" Patent On Arrival Rt Antecubital 0.9NaCl 25 ml/hr Jyotsna Luke RN Allergies Atorvastatin Ibuprofen Acetaminophen IRON Vital Signs Time BP (mmHg) HR (bpm) O2 Sat. RR (bpm) LOC 03:28 PM 99 / 63 58 96 % 16 5 = Fully awake and oriented or at pre-proc level 03:36 PM / % 5 = Fully awake and oriented or at pre-proc level 04:29 PM 189 / 27 58 77 % 24 04:32 PM 143 / 82 63 98 % 18 04:34 PM 148 / 80 54 98 % 18 04:38 PM 134 / 83 56 96 % 14 04:43 PM 136 / 74 53 94 % 24 04:48 PM 88 / 62 61 95 % 6 04:49 PM 127 / 75 51 97 % 18 04:53 PM 137 / 79 52 94 % 19 04:58 PM 147 / 84 51 96 % 23 05:03 PM 142 / 62 51 97 % 18 05:35 PM 135 / 77 48 95 % 11 05:38 PM 145 / 80 49 97 % 12 05:43 PM 105 / 64 60 96 % 15 05:49 PM 120 / 83 49 98 % 19 05:54 PM 140 / 89 49 96 % 23 05:58 PM 119 / 84 50 98 % 13 06:03 PM 131 / 72 60 91 % 15 06:08 PM 141 / 80 56 96 % 16 06:13 PM 128 / 84 55 94 % 9 06:18 PM 142 / 92 60 92 % 18 06:23 PM 95 / 71 62 95 % 22 03:44 PM 170 / 85 56 98 % 17 03:48 PM 135 / 74 55 98 % 17 03:53 PM 143 / 77 55 98 % 14 03:59 PM 138 / 76 56 99 % 22 04:03 PM 147 / 82 59 100 % 12 04:08 PM 139 / 73 59 100 % 17 04:13 PM 150 / 78 58 100 % 21 04:18 PM 160 / 87 59 100 % 13 04:24 PM 138 / 99 59 99 % 29 05:08 PM 141 / 63 51 98 % 13 05:11 PM 136 / 94 50 96 % 22 05:13 PM 103 / 45 49 100 % 20 05:14 PM 85 / 55 50 100 % 21 05:15 PM 126 / 67 50 98 % 24 05:18 PM 130 / 72 51 95 % 16 05:23 PM 132 / 102 50 95 % 10 05:29 PM 94 / 48 59 92 % 12 05:32 PM 131 / 78 48 94 % 15 05:33 PM 72 / 33 49 94 % 12 06:25 PM 89 / 60 58 95 % 21 06:27 PM 123 / 99 61 96 % 10 06:29 PM 147 / 111 55 95 % 35 06:33 PM 76 / 50 62 85 % 26 06:38 PM 63 / 32 60 % 14 06:43 PM 82 / 71 % Procedural Medications Time Medication Dose Units Method Given By 03:36 PM Oxygen 2 L/min nasal cannula Vickie Etienne RN 03:44 PM Versed 1 mg Intravenous Vickie Etienne RN 03:45 PM Fentanyl 50 mcg Intravenous Vickie Etienne RN 03:50 PM Lidocaine 2% 10 ml Subcutaneous Terrence Esquivel MD 04:01 PM Heparin 4000 units Intravenous Vickie Etienne RN 04:01 PM Aggrastat Bolus: 42 ml Intravenous Vickie Etienne RN 04:01 PM Aggrastat 12.5mg/250ml 7.5 ml Intravenous Vickie Etienne RN 04:29 PM Fentanyl 50 mcg Intravenous Vickie Etienne RN 04:30 PM Nitroglycerin 0.4 mcg Orally Vickie Etienne RN 04:31 PM Nitroglycerin 100 mcg Intracoronary MoussaKashif MD 04:54 PM Heparin 1000 units Intravenous Vickie Etienne RN 05:09 PM Versed 0.5 mg Intravenous AnamariammVickie ashley RN 05:09 PM Fentanyl 25 mcg Intravenous Vickie Etienne RN 05:23 PM Nitroglycerin 100 mcg Intracoronary MoussaKashif MD 05:24 PM Nitroglycerin 200 mcg Intracoronary MoussaKashif MD 05:27 PM Nipride 50 mcg Intracoronary MoussaKashif MD 05:27 PM Nipride 50 mcg Intracoronary MoussaKashif MD 05:42 PM Nipride 50 mcg Intracoronary MoussaKashif MD 05:42 PM 0.9NaCl 200 ml/hr Intravenous Vickie Etienne RN 05:50 PM Nipride 100 mcg Intracoronary MoussaKashif MD 05:56 PM Morphine 2 mg Intravenous Vickie Etienne RN 05:59 PM Versed 1 mg Intravenous Vickie Etienne RN 06:05 PM Reopro Bolus: 10.8 ml Intracoronary MoussKashif lewis MD 06:07 PM Versed 1 mg Intravenous Vickie Etienne RN 06:30 PM Morphine 1 mg Intravenous Vickie Etienne RN 01:17 PM Plavix 300 mg Orally Jyotsna Luke RN 01:18 PM Morphine 1 mg Intravenous Jyotsna Luke RN ASA Classification: CLASS II- Mild systemic disease (i.e. well-controlled diabetes, hypertension, asthma, cigarette smoking) Hany Score Preprocedure Postprocedure Activity Activity Circulation Circulation Consciousness Consciousness O2 Saturation O2 Saturation Respiratory Respiratory Total Score Total Score Contrast Agent: Isovue Diagnostic Contrast: 297 ml Total Contrast: 297 ml Fluoro Dose: 6564 mGy Activated Clotting Time Time Seconds to Clot 04:11 PM 160 05:10 PM 322 06:09 PM 400 Procedure Log Time Note Enter By 03:19 PM CathStat 03:35 PM Pt arrived to label folder 2 at 15:35 scoates 03:35 PM Venessa Wilson RT (R) Position: Monitor Time in: 15:35 scoates 03:36 PM Jimmie Villegas RT (R) Position: Scrub Time in: 15:36 scoates 03:36 PM Vickie Etienne RN Position: Cad Designer Time in: 15:36 scoates 03:36 PM Patient charges- Angio tray pack, Navilyst 3mm J, Pulse Oximetry and ACIST tubing and transducer scoates 03:36 PM Case Delayed No scoates 03:36 PM Physician arrived 15:36 scoates 03:36 PM Meet and greet completed scoates 03:36 PM Sign in performed according to hospital policy. scoates 03:36 PM Procedure start 15:36 scoates 03:36 PM Time: 15:36 Oxygen on at 2 L/min per nasal cannula by Vickie Etienne RN scoates 03:36 PM Time: 15:36 Patient comfortable and pain free: Yes scoates 03:36 PM Time: 15:36LOC: 5 = Fully awake and oriented or at pre-proc level scoates 03:36 PM Clinical Presentation: Non-STEMI scoates 03:42 PM Recorded ECG: HR=57 Condition=Condition 1 03:42 PM Vitals capture started with the following parameters, Patient=Adult, Interval=5 min, Initial Tzcbnefw=946 mmHg, Deflation Rate=5 mmHg, Cuff placed on Right Arm 03:43 PM Recorded ECG: HR=56 Condition=Condition 1 03:44 PM HR=56 bpm, HDWZ=162/85 mmhg, SpO2=98.0 %, Resp=17 B/min 03:45 PM Time: 15:44 Versed 1 mg Intravenous Given by Vickie Etienne RN tsites 03:45 PM Time: 15:45 Fentanyl 50 mcg Intravenous Given by Vickie Etienne RN tsites 03:47 PM Pressure channel 1 zeroed. 03:48 PM HR=55 bpm, JBII=148/74 mmhg, SpO2=98.0 %, Resp=17 B/min 03:50 PM Time out performed according to hospital policy tsites 03:50 PM Time: 15:50 10 ml Lidocaine 2% to right groin Subcutaneous Given by Terrence Esquivel MD tsites 03:50 PM Micro-Introducer Kit utilized for sheath placement tsites 03:50 PM 3cc of contrast injected into the rt femoral artery tsites 03:52 PM Access obtained by percutaneous puncture. 6Fr 10cm Terumo [place] sheath placed in right Femoral artery. [id number] tsites 03:53 PM HR=55 bpm, MAVJ=081/77 mmhg, SpO2=98.0 %, Resp=14 B/min 03:54 PM 5Fr FL 4 catheter inserted over the wire DN tsites 03:54 PM 0.035 145cm Navilyst 3mmJ wire [id number] tsites 03:55 PM LCA angiography performed in multiple views. tsites 03:55 PM Recorded Pressure: Ao, HR=56, Condition=Condition 1 (Aorta) Ao 115/67/87 03:56 PM wire reinserted catheter removed tsites 03:57 PM 5Fr FR 4 catheter inserted over the wire DN tsites 03:57 PM ACT drawn tsites 03:59 PM HR=56 bpm, BPJB=689/76 mmhg, SpO2=99.0 %, Resp=22 B/min 03:59 PM RCA angiography performed in multiple views. tsites 03:59 PM Recorded Pressure: LV, HR=62, Condition=Condition 1 (Left Ventricle) LV 134/13/18 04:00 PM Recorded Pressure: LV, Ao, HR=60, Condition=Condition 1 (Left Ventricle) LV 135/14/18, (Aorta) Ao 142/76/102 04:00 PM wire reinserted catheter removed tsites 04:00 PM 5Fr Pigtail catheter inserted over the wire DN tsites 04:00 PM Catheter selectively placed in left ventricle tsites 04:00 PM edp measured tsites 04:00 PM PCI Status Urgent tsites 04:00 PM PCI Indication: PCI for high risk Non-STEMI or unstable angina tsites 04:01 PM PCI lesion in Mid LAD. tsites 04:01 PM 6Fr XB LAD 3.5 Cordis guide catheter was used to cannulate the PCI vessel successfully. reused? No tsites 04:01 PM Inflation device was opened. tsites 04:01 PM At 16:01 the ACT was 160 seconds. tsites 04:01 PM Time: 16:01 Heparin 4000 units Intravenous Given by Vickie Etienne RN tsites 04:01 PM Time: 16:01 Aggrastat Bolus: 42 ml Intravenous Given by Vickie Etienne RN Love pump tsites 04:02 PM Time: 16:01 Aggrastat 12.5mg/250ml 7.5 ml Intravenous Given by Vickie Etienne RN Love pump tsites 04:02 PM .014 Fielder 180cm guide wire across target lesion- successful. reused? No tsites 04:02 PM Coronary Dominance: right tsites 04:03 PM Lesion found in Mid LAD. Pre Stenosis: 99 Pre NASIM Flow: 2: Partial Flow/Perfusion (> 1 but < 3) tsites 04:03 PM HR=59 bpm, RSCV=823/82 mmhg, FwP1=381.0 %, Resp=12 B/min 04:05 PM Mid/Distal Left Anterior Descending Coronary Artery and diagonal branches with 99% stenosis. If graft is supplying this area, 0 % stenosis tsites 04:08 PM HR=59 bpm, XMYV=839/73 mmhg, KkW0=031.0 %, Resp=17 B/min, Comment=SB 04:10 PM Recorded Pressure: Ao, HR=61, Condition=Condition 1 (Aorta) Ao 158/72/111 04:10 PM reshaping wire tsites 04:12 PM .014 BMW [place] 190cm guide wire across target lesion- successful. reused? No tsites 04:13 PM HR=58 bpm, UNAC=457/78 mmhg, MjC1=731.0 %, Resp=21 B/min 04:18 PM HR=59 bpm, DSUT=837/87 mmhg, MkM2=507.0 %, Resp=13 B/min, Comment=SB 04:24 PM HR=59 bpm, HIZG=342/99 mmhg, SpO2=99.0 %, Resp=29 B/min, Comment=SB 04:24 PM 2.0 mm x 20 mm Emerge Monorail balloon across target lesion- successful. reused? No tsites 04:26 PM Balloon catheter removed intact. tsites 04:26 PM Guide wire removed intact. tsites 04:29 PM HR=58 bpm, OQSA=374/27 mmhg, SpO2=77.0 %, Resp=24 B/min, Comment=SB 04:29 PM Time: 16:29 Fentanyl 50 mcg Intravenous Given by Vickie Etienne RN tsites 04:30 PM NIBP STAT measurement started. 04:31 PM Time: 16:30 Nitroglycerin 0.4 mcg Orally Given by Vickie Etienne RN tsites 04:32 PM Time: 16:31 Nitroglycerin 100 mcg Intracoronary Given by Kashif Esquivel MD tsites 04:32 PM HR=63 bpm, HESP=647/82 mmhg, SpO2=98.0 %, Resp=18 B/min, Comment=SB 04:33 PM .014 Whisper 300cm guide wire across target lesion- successful. reused? No tsites 04:34 PM HR=54 bpm, ZKCI=591/80 mmhg, SpO2=98.0 %, Resp=18 B/min, Comment=SB 04:38 PM HR=56 bpm, TXYO=661/83 mmhg, SpO2=96.0 %, Resp=14 B/min, Comment=SB 04:40 PM Physician reviewing films tsites 04:[address] Hector reviewed films remotely tsites 04:[address] Russ consulted and present in the sawyer cork slabs tsites 04:43 PM HR=53 bpm, UAII=013/74 mmhg, SpO2=94.0 %, Resp=24 B/min, Comment=SB 04:45 PM 1.5 mm x 6 mm Mini Trek OTW balloon across target lesion- successful. reused? No tsites 04:47 PM Recorded ECG: HR=58 Condition=Condition 1 04:48 PM HR=61 bpm, NIBP=88/62 mmhg, SpO2=95.0 %, Resp=6 B/min 04:48 PM NIBP STAT measurement started. 04:49 PM HR=51 bpm, WIQU=543/75 mmhg, SpO2=97.0 %, Resp=18 B/min, Comment=SB 04:51 PM Balloon inflated @ 8 carlos for 10 seconds tsites 04:51 PM Balloon inflated @ 6 carlos for 11 seconds tsites 04:51 PM Balloon inflated @ 6 carlos for 6 seconds tsites 04:52 PM NIBP STAT measurement started. 04:53 PM HR=52 bpm, HKDF=254/79 mmhg, SpO2=94.0 %, Resp=19 B/min 04:54 PM Time: 16:54 Heparin 1000 units Intravenous Given by Vickie Etienne RN tsites 04:55 PM ACT drawn tsites 04:56 PM Balloon catheter removed intact. tsites 04:57 PM 2.0 mm x 12 mm Emerge Monorail balloon across target lesion- successful. reused? No tsites 04:58 PM HR=51 bpm, KFSK=447/84 mmhg, SpO2=96.0 %, Resp=23 B/min 04:58 PM Balloon inflated @ 6 carlos for 6 seconds tsites 04:59 PM Balloon inflated @ 6 carlos for 2 seconds tsites 04:59 PM Balloon inflated @ 10 carlos for 8 seconds tsites 04:59 PM Balloon inflated @ 10 carlos for 4 seconds tsites 04:59 PM Balloon inflated @ 10 carlos for 3 seconds tsites 05:00 PM Balloon inflated @ 10 carlos for 5 seconds tsites 05:00 PM Balloon inflated @ 10 carlos for 5 seconds tsites 05:00 PM Balloon inflated @ 10 carlos for 3 seconds tsites 05:02 PM Balloon catheter removed intact. tsites 05:02 PM 2.0 mm x 20 mm Emerge Monorail balloon across target lesion- successful. reused? No tsites 05:02 PM Balloon inflated @ 10 carlos for 12 seconds tsites 05:02 PM Balloon inflated @ 10 carlos for 7 seconds tsites 05:03 PM Balloon inflated @ 10 carlos for 4 seconds tsites 05:03 PM HR=51 bpm, RFMK=166/62 mmhg, SpO2=97.0 %, Resp=18 B/min 05:03 PM Balloon inflated @ 10 carlos for 5 seconds tsites 05:04 PM Balloon catheter removed intact. tsites 05:07 PM 2.25mm x 20mm Synergy drug-eluting stent across target lesion- successful Lot #[id number] tsites 05:07 PM Stent deployed @ 9 carlos for 5 seconds tsites 05:08 PM Stent balloon reinflated @ 11 carlos for 7 seconds tsites 05:08 PM Stent delivery system removed intact. tsites 05:08 PM HR=51 bpm, OCDV=851/63 mmhg, SpO2=98.0 %, Resp=13 B/min 05:09 PM 2.5mm x 20mm Synergy drug-eluting stent across target lesion- successful Lot #[id number] tsites 05:09 PM Time: 17:09 Versed 0.5 mg Intravenous Given by Vickie Etienne RN tsites 05:09 PM Time: 17:09 Fentanyl 25 mcg Intravenous Given by Vickie Etienne RN tsites 05:10 PM At 17:10 the ACT was 322 seconds. tsites 05:10 PM Stent deployed @ 9 carlos for 7 seconds tsites 05:11 PM NIBP STAT measurement started. 05:11 PM Stent balloon reinflated @ 11 carlos for 8 seconds tsites 05:11 PM HR=50 bpm, OOCZ=834/94 mmhg, SpO2=96.0 %, Resp=22 B/min, Comment=SB 05:11 PM Recorded ECG: HR=50 Condition=Condition 1 05:12 PM Stent delivery system removed intact. tsites 05:13 PM HR=49 bpm, VNJA=688/45 mmhg, EbD3=074.0 %, Resp=20 B/min, Comment=SB 05:13 PM NIBP STAT measurement started. 05:14 PM HR=50 bpm, NIBP=85/55 mmhg, SkG9=722.0 %, Resp=21 B/min, Comment=SB 05:14 PM NIBP STAT measurement started. 05:15 PM HR=50 bpm, IXTG=112/67 mmhg, SpO2=98.0 %, Resp=24 B/min, Comment=SB 05:15 PM 2.0 mm x 20mm NC Trek Rx balloon across target lesion- successful. reused? No tsites 05:15 PM Balloon inflated @ 16 carlos for 4 seconds tsites 05:16 PM Balloon inflated @ 16 carlos for 6 seconds tsites 05:16 PM Balloon inflated @ 6 carlos for 6 seconds tsites 05:17 PM Balloon inflated @ 6 carlos for 8 seconds tsites 05:17 PM Balloon catheter removed intact. tsites 05:18 PM HR=51 bpm, WYVD=541/72 mmhg, SpO2=95.0 %, Resp=16 B/min, Comment=SB 05:23 PM pronto thrombectomy pass # 1 for 25 ml total fluid. tsites 05:23 PM HR=50 bpm, BRKC=563/102 mmhg, SpO2=95.0 %, Resp=10 B/min, Comment=SB 05:23 PM Time: 17:23 Nitroglycerin 100 mcg Intracoronary Given by Kashif Esquivel MD tsites 05:24 PM Time: 17:24 Nitroglycerin 200 mcg Intracoronary Given by Kashif Esquivel MD tsites 05:26 PM Recorded ECG: HR=52 Condition=Condition 1 05:27 PM Time: 17:27 Nipride 50 mcg Intracoronary Given by Kashif Esquivel MD tsites 05:28 PM Time: 17:27 Nipride 50 mcg Intracoronary Given by Kashif Esquivel MD tsites 05:28 PM NIBP STAT measurement started. 05:29 PM HR=59 bpm, NIBP=94/48 mmhg, SpO2=92.0 %, Resp=12 B/min 05:29 PM BMW reinserted tsites 05:31 PM NIBP STAT measurement started. 05:32 PM HR=48 bpm, RILM=437/78 mmhg, SpO2=94 %, Resp=15 B/min 05:32 PM 2.0 mm x 12 mm Emerge Monorail balloon across target lesion- successful. reused? No tsites 05:33 PM HR=49 bpm, NIBP=72/33 mmhg, SpO2=94 %, Resp=12 B/min 05:33 PM NIBP STAT measurement started. 05:35 PM HR=48 bpm, ISMJ=983/77 mmhg, SpO2=95 %, Resp=11 B/min 05:36 PM Balloon catheter removed intact. tsites 05:36 PM 1.5 mm x 20 mm Emerge Monorail push balloon across target lesion- successful. reused? No tsites 05:36 PM Balloon inflated @ 10 carlos for 5 seconds tsites 05:37 PM Balloon inflated @ 10 carlos for 2 seconds tsites 05:37 PM Balloon inflated @ 12 carlos for 10 seconds tsites 05:38 PM HR=49 bpm, FOXK=685/80 mmhg, SpO2=97 %, Resp=12 B/min 05:38 PM Balloon catheter removed intact. tsites 05:39 PM 2.75 mm x 20mm NC Trek Rx balloon across target lesion- successful. reused? No tsites 05:39 PM Balloon inflated @ 16 carlos for 6 seconds tsites 05:40 PM Balloon inflated @ 16 carlos for 6 seconds tsites 05:40 PM Balloon inflated @ 18 carlos for 6 seconds tsites 05:41 PM Balloon inflated @ 16 carlos for 9 seconds tsites 05:41 PM Balloon catheter removed intact. tsites 05:42 PM Time: 17:42 Nipride 50 mcg Intracoronary Given by Kashif Esquivel MD tsites 05:42 PM Time: 17:42 0.9NaCl 200 ml/hr Intravenous Given by Vickie Etienne RN tsites 05:43 PM HR=60 bpm, ZJVF=451/64 mmhg, SpO2=96 %, Resp=15 B/min 05:43 PM 2.0 mm x 8 mm Emerge Monorail balloon across target lesion- successful. reused? No tsites 05:45 PM Balloon catheter removed intact. tsites 05:45 PM Guide wire removed intact. tsites 05:47 PM Balloon inflated @ 10 carlos for 4 seconds tsites 05:48 PM Balloon inflated @ 10 carlos for 3 seconds tsites 05:48 PM Balloon inflated @ 6 carlos for 3 seconds tsites 05:48 PM Balloon inflated @ 10 carlos for 3 seconds tsites 05:49 PM HR=49 bpm, ONAC=010/83 mmhg, SpO2=98 %, Resp=19 B/min 05:50 PM Guide wire removed intact. tsites 05:51 PM Time: 17:50 Nipride 100 mcg Intracoronary Given by Kashif Esquivel MD tsites 05:54 PM HR=49 bpm, GNYX=583/89 mmhg, SpO2=96 %, Resp=23 B/min 05:56 PM Time: 17:56 Morphine 2 mg Intravenous Given by Vickie Etienne RN tsites 05:57 PM bmw wire reinserted tsites 05:58 PM HR=50 bpm, FACL=916/84 mmhg, SpO2=98 %, Resp=13 B/min 05:59 PM 2.25mm x 12mm Synergy drug-eluting stent across target lesion- successful Lot #[id number] tsites 05:59 PM Balloon inflated @ 10 carlos for 5 seconds tsites 05:59 PM Time: 17:59 Versed 1 mg Intravenous Given by Vickie Etienne RN tsites 06:00 PM Stent balloon reinflated @ 16 carlos for 6 seconds tsites 06:00 PM Stent balloon reinflated @ 16 carlos for 3 seconds tsites 06:01 PM Balloon inflated @ 12 carlos for 4 seconds tsites 06:01 PM Stent balloon reinflated @ 12 carlos for 3 seconds tsites 06:01 PM Balloon inflated @ 12 carlos for 4 seconds tsites 06:02 PM Stent balloon reinflated @ 16 carlos for 3 seconds tsites 06:02 PM Stent delivery system removed intact. tsites 06:03 PM HR=60 bpm, CTJP=456/72 mmhg, SpO2=91.0 %, Resp=15 B/min 06:03 PM 3.0 mm x 15mm NC Emerge balloon across target lesion- successful. reused? No tsites 06:03 PM ACT drawn tsites 06:05 PM Time: 18:05 Reopro Bolus: 10.8 ml Intracoronary Given by Kashif Esquivel MD Love pump tsites 06:06 PM Balloon inflated @ 18 carlos for 6 seconds tsites 06:06 PM Balloon inflated @ 18 carlos for 10 seconds tsites 06:07 PM Balloon inflated @ 20 carlos for 6 seconds tsites 06:07 PM Time: 18:07 Versed 1 mg Intravenous Given by Vickie Etienne RN tsites 06:08 PM Balloon inflated @ 20 carlos for 5 seconds tsites 06:08 PM Balloon inflated @ 20 carlos for 6 seconds tsites 06:08 PM HR=56 bpm, PFKR=438/80 mmhg, SpO2=96 %, Resp=16 B/min 06:09 PM At 18:09 the ACT was 400 seconds. tsites 06:11 PM Balloon catheter removed intact. tsites 06:13 PM Guide catheter removed intact. tsites 06:13 PM 6Fr JR 4 Runway guide catheter was used to cannulate the PCI vessel successfully. reused? No tsites 06:13 PM HR=55 bpm, NWLG=301/84 mmhg, SpO2=94 %, Resp=9 B/min 06:13 PM RCA angiography performed in multiple views. tsites 06:16 PM Recorded Pressure: LV, HR=60, Condition=Condition 1 (Left Ventricle) LV 132/24/35 06:16 PM Recorded Pressure: LV, HR=61, Condition=Condition 1 (Left Ventricle) LV 141/25/31 06:18 PM HR=60 bpm, BBFS=307/92 mmhg, SpO2=92.0 %, Resp=18 B/min 06:18 PM Sheath exchanged for a 8 Fr 11 cm Maquet Introducer sheath [id number] tsites 06:19 PM 8 Fr Maquet Balloon Pump IABP catheter inserted into right Femoral artery, 40 cc, *ACC* catheter inserted 1 tsites 06:23 PM HR=62 bpm, NIBP=95/71 mmhg, SpO2=95 %, Resp=22 B/min 06:24 PM Recorded ECG: HR=58 Condition=Condition 1 06:24 PM NIBP STAT measurement started. 06:25 PM HR=58 bpm, NIBP=89/60 mmhg, SpO2=95.0 %, Resp=21 B/min 06:25 PM NIBP STAT measurement started. 06:27 PM HR=61 bpm, CRSD=098/99 mmhg, SpO2=96 %, Resp=10 B/min 06:29 PM HR=55 bpm, ZCRZ=645/111 mmhg, SpO2=95 %, Resp=35 B/min 06:31 PM Time: 18:30 Morphine 1 mg Intravenous Given by Vickie Etienne RN tsites 06:33 PM HR=62 bpm, NIBP=76/50 mmhg, SpO2=85 %, Resp=26 B/min 06:38 PM HR=60 bpm, NIBP=63/32 mmhg, Resp=14 B/min 06:43 PM NIBP=82/71 mmhg 06:45 PM IABP Settings: 1:1 ratio Pressure trigger tsites 06:48 PM IABP Augmented pressure, mean: 121 tsites 06:48 PM IABP Systemic BP: 119/94 tsites 06:48 PM IABP sheath sutured to skin tsites 06:49 PM Procedure completed at 18:49 tsites 06:50 PM Sign out completed: Radiation Dose 6564 mGy Fluoro Time: 68.5 Isovue 370 - 200ml contrast 297 ml given by Terrence Esquivel MD. Complications: dissectionCardiac Rehab Consult needed: YesConfirmed administered medications: Yes tsites 06:50 PM Vitals capture stopped. 06:50 PM Isovue 370 - 200ml,3 Bottle(s) used. tsites 06:50 PM Sheath left in place to be pulled on floor/holding areaV+Pad tsites 06:50 PM Estimated Blood Loss: less than 20cc tsites 06:50 PM Post ECG Sinus Bradycardia tsites 06:50 PM Post Blood Pressure 126/69 tsites 06:50 PM 18:50 Post Pulses Bilateral DP & PT 1+ tsites 06:51 PM Information taught Cardiac Cath and PCI tsites 06:51 PM Education needs Procedure, Plan of Care, and Responsibilities of Patient in Care tsites 07:07 PM Learning barriers :None tsites 07:07 PM Education Methods Verbal tsites 07:07 PM Education evaluation Able to repeat information tsites 07:07 PM Site status No bleeding/hematoma - Rt Groin as reported by Jimmie Villegas RT (R) at 19:07 tsites 07:07 PM Opsite applied tsites 07:07 PM Report given to jyotsna/vickie RN Pt taken to ICU Room #11. 19:07 tsites 07:07 PM sawyer cork slabs staff with patient in icu tsites 07:07 PM Delay to floor No tsites 07:08 PM Patient out of room: 19:08 tsites 07:08 PM Family placed in consult room. tsites 07:08 PM Complications: Dissection tsites 07:09 PM called for stat echo tsites 07:16 PM Lesion found in 1st Diagonal. Pre Stenosis: 95 Pre NASIM Flow: 2: Partial Flow/Perfusion (> 1 but < 3) tsites 07:25 PM Time: 13:17 Plavix 300 mg Orally Given by Jyotsna Luke RN in ICU tsites 07:25 PM Time: 19:25 Morphine 1 mg Intravenous Given by Jyotsna Luke RN in ICU tsites Equipment Used Size Length Diameter Item Category ACT Other ACT Other ACT Other Angio tray pack Other Micro-Introducer Kit Other Terumo [place] sheath Navilyst 3mmJ wire Britetip Guide catheter Inflation kit Other Love pump Other BMW Guidewire Emerge PTCA Dilatation Catheter Monorail Balloon Whisper Guidewire guide wire Mini-Trek OTW Balloon Emerge PTCA Dilatation Catheter Monorail Balloon Emerge PTCA Dilatation Catheter Monorail Balloon Promus Element Plus Rx Drug Eluting Stent Promus Element Plus Rx Drug Eluting Stent NC Trek Rx Balloon Norris Catheter Thrombectomy Emerge PTCA Dilatation Catheter Monorail Balloon Emerge PTCA Dilatation Catheter Monorail Balloon NC Trek Rx Balloon Promus Element Plus Rx Drug Eluting Stent Empira NC Rx Balloon Runway Guide catheter Maquet Introducer sheath Intra Aortic Balloon Pump Balloon V+Pad Patch gallegos Other Complications Complication None Dissection Hemodynamics Pressures Site Systolic/A Wave Diastolic/V Wave Mean AO 115 67 87 LV 134 13 18 LV 135 14 18 AO 142 76 102 AO 158 72 111 LV 132 24 35 LV 141 25 31 Post Procedure Information Blood Pressure: 126/69 mmHg Rhythm: Sinus Bradycardia Post procedural instructions were given Closure Device Time Device Success/Fail 07/11/2017 7:10:00 PM Manual Compression Site Checks Time Location Status Staff Sheath In? Note 07:07 PM Rt Groin No bleeding/hematoma Jimmie Villegas RT (R) Pulses Time Site Pre-Procedure Post-Procedure Note Bilateral radial 2+ 6:50:00 PM Bilateral DP & PT 1+ Updated by Venessa Katie, RT (R) on 07/13/2017 1:21:58 PM Venessa Katie RT electronically signed on 07/13/2017 1:24:08 PM with status of Final
--- NOTE | 2017-10-25 12:10 | Cardiology Progress Note ---
Date of Encounter: 10/25/17 (LATE ENTRY) Time of Encounter: 12:08 (LATE ENTRY) Assessment and Plan (1) NSTEMI (non-ST elevated myocardial infarction) Status: Acute Patient with Severe tortuous disease in the LAD s/p PCI with ongoing chest pain. LAD dissection s/p PCI with STENTS, continues to have slow flow. Will need hemodynamic support at tertiary care facility. Patient and family agree to trasfer to [facility]. D/W accepting cardiology agree to for transfer Discussion w patient/family: The assessment and plan as outlined above was discussed with the patient and/or family members who expressed understanding and agreement. All questions were answered. Thank you for involving us in the care of your patient. Please call with any questions. Subjective Principal diagnosis: CAD Interval history: Patient s/p PCI with slow flow in LAD, EF 55-60%, patient chest pain free to be transferred to tertiary care facility for hemodynamic support Objective General: Conversant, No Apparent Distress HEENT: Atraumatic, Normocephaly, Mucus Membranes Moist Neck: No JVD, Normal carotid pulses Cardiac: Reg Rate and Rhythm, Normal S1 and S2, No Murmur Lungs: Normal Breath Sounds, No Wheeze, Rales, Rhonchi Neuro: Alert and responsive, No focal deficits noted Abdomen: Soft, Non-Tender Skin: No rashes noted on visualized skin Musculoskeletal: No Chest Wall Tenderness Extremities: No Clubbing, No Cyanosis, No Edema, Normal Pulses Results 07/11/17 02:58 07/11/17 02:58 Consult Discharge Plan - Plan Referrals: Cody Berg MD [Primary Care Provider] -
== END 2017-07-11 22:33 | DRG 272 ==
LOC: EMEROO 09:20 → 3BNU 09:20 → ICNU 07-11 16:57
PROVIDERS: ADMIT Registered Nurse; ATTEND Registered Nurse